=== PATIENT | male | born 1950 | race Caucasian/White ===

== ENCOUNTER → 2016-11-21 | Outpatient (CLI) | payer BC ==
[~2016-11-21] MED LIST: ACET-1138 PO; ACET-1256 PO; ALBUAER2 INH; AMLO-114 PO; ASPEC81 PO; ASPI81TA28 PO; B-CO1CAP3 PO; CARV3.122 PO; CLB/200 PO; FLUT1INH INH; LISI-789 PO; LOVAZA PO; MONT1TAB3 PO; MRPSR15 PO; ONDA8TAB6 PO; OXYSR/20 PO; RCPAV2 IV; RXC5 PO; SNK PO; TEMA15CA4 PO; UMEC1INH INH
--- NOTE | 2016-11-21 15:17 | DIAGNOSTIC IMAGING REPORT ---
ULTRASOUND VENOUS DOPPLER ULTRASOUND THE RIGHT LOWER EXTREMITY CLINICAL HISTORY: Right leg pain. Edema. COMPARISON STUDY: No previous studies for comparison. FINDINGS: Real-time and color flow Doppler imaging were performed. Flow was seen within the femoral, popliteal and calf veins with no intraluminal thrombus demonstrated. The saphenous vein is patent. There is a 4.8 x 3.6 x 2 cm complex right popliteal collection, possibly hemorrhagic given the history of recent surgery. Clinical follow-up is advocated. IMPRESSION: 1. No evidence of right lower extremity DVT 2. Complex right popliteal collection measuring 48 x 36 x 20 mm Electronically signed by: Javan Denis M.D. 11/21/2016 3:15 PM
== END | disposition home or self-care (01) ==
LOC: C.ULTRBC 14:48
PROVIDERS: ATTEND Orthopaedic Surgery
DX: M17.11 Unilateral primary osteoarthritis, right knee (principal)

== ENCOUNTER → 2017-01-22 | Outpatient (CLI) | payer BC ==
[~2017-01-22] MED LIST changes: -ACET-1256 PO; -ASPEC81 PO; -ONDA8TAB6 PO; -OXYSR/20 PO
[2017-01-22 12:59] LABS: BASO % 0.8 %; BASO ABS # 0.07 K/uL (0-0.2); COMPLETE YES; EOS % 3.6 %; HEMATOCRIT 43.9 % (42-52); LYMPH % 27.3 %; LYMPH ABS # 2.51 K/uL (1.2-3.4); MEAN CORPUSCULAR HEMOGLOBIN 29.6 pg (25-34); MEAN CORPUSCULAR HGB CONC 33.3 g/dl (32-36); MEAN PLATELET VOLUME 9.6 fL (7.4-10.4); MONO % 9.9 %; NEUT % 58.4 %; PLATELET COUNT 290 K/uL (130-400); RED BLOOD COUNT 4.93 M/uL (4.7-6.1); WHITE BLOOD COUNT 9.19 K/uL (4.8-10.8)
[2017-01-22 13:07] LABS: URINE APPEARANCE CLEAR (CLEAR); URINE BILIRUBIN NEG (NEG); URINE COLOR DK YELLOW; URINE NITRITE NEG (NEG); URINE SPECIFIC GRAVITY 1.023 (1.000-1.030); UROBILINOGEN NEG (NEG)
[2017-01-22 13:11] LABS: PROTHROMBIN TIME (PATIENT) 10.9 SECONDS (9.0-12.0)
[2017-01-22 13:20] LABS: MANUAL MICROSCOPIC REQUIRED? NO; REVIEW REQ? NO
[2017-01-22 13:36] LABS: BLOOD UREA NITROGEN 12 mg/dl (7-18); BUN/CREATININE RATIO 12.9 (10-20); CALCIUM 9.3 mg/dl (8.5-10.1); CARBON DIOXIDE 24 mmol/L (21-32); CHLORIDE 107 mmol/L (98-107); GLUCOSE 80 mg/dl (70-99); POTASSIUM 4.1 mmol/L (3.5-5.1); SODIUM 142 mmol/L (136-145)
== END | disposition home or self-care (01) ==
LOC: C.LAB 11:50
PROVIDERS: ATTEND Orthopaedic Surgery Sports Medicine
DX: Z01.812 Encounter for preprocedural laboratory examination (principal)

== ENCOUNTER → 2017-04-17 | Outpatient (CLI) | payer BC | END | disposition home or self-care (01) | LOC: C.LAB 12:34 | PROVIDERS: ATTEND Orthopaedic Surgery | DX: Z01.812 Encounter for preprocedural laboratory examination (principal) ==

== ENCOUNTER 2017-04-25 05:19 | Inpatient (IN) | payer BC ==
[2017-04-17 14:35] LABS: BASO ABS # 0.08 K/uL (0-0.2); COMPLETE YES; EOS % 5.3 %; HEMATOCRIT 40.7 % (42-52); IG% 0.1 %; LYMPH % 32.2 %; MEAN CELL VOLUME 92.1 fL (80-100); MEAN CORPUSCULAR HGB CONC 33.7 g/dl (32-36); MEAN PLATELET VOLUME 9.3 fL (7.4-10.4); MONO % 8.9 %; NEUT % 52.5 %; PLATELET COUNT 287 K/uL (130-400); RED BLOOD COUNT 4.42 M/uL (4.7-6.1); WHITE BLOOD COUNT 7.76 K/uL (4.8-10.8)
[2017-04-17 14:37] LABS: URINE APPEARANCE CLEAR (CLEAR); URINE BILIRUBIN NEG (NEG); URINE COLOR YELLOW; URINE NITRITE NEG (NEG); URINE PH 5.5 (4.5-7.5); URINE SPECIFIC GRAVITY 1.019 (1.000-1.030); UROBILINOGEN NEG (NEG); ZZUR CULT IF INDIC CLEAN CATCH NO
[2017-04-17 14:41] LABS: BLOOD UREA NITROGEN 13 mg/dl (7-18); BUN/CREATININE RATIO 15.5 (10-20); CALCIUM 8.7 mg/dl (8.5-10.1); CARBON DIOXIDE 26 mmol/L (21-32); CHLORIDE 108 mmol/L (98-107); CREATININE 0.81 mg/dl (0.60-1.40); GLUCOSE 92 mg/dl (70-99); MANUAL MICROSCOPIC REQUIRED? NO; POTASSIUM 3.9 mmol/L (3.5-5.1); REVIEW REQ? NO; SODIUM 140 mmol/L (136-145)
[2017-04-17 14:53] LABS: PARTIAL THROMBOPLASTIN RATIO 1.1; PROTHROMBIN TIME (PATIENT) 10.7 SECONDS (9.0-12.0)
--- NOTE | 2017-04-24 15:30 | HISTORY & PHYSICAL EXAMINATION ---
DATE OF ADMISSION: 04/25/2017 HISTORY OF PRESENT ILLNESS: The patient presents as a 66-year-old, 5 feet 11 inches, 265-pound white male with complaints of severe endstage DJD about his left knee. He has previously undergone right total knee arthroplasty successfully. He presents for his left total knee arthroplasty. His right total knee arthroplasty was done in October of 2016. He had an uncomplicated postoperative fashion. He has failed attempts at conservative management. He has a varus alignment to his knee with subchondral sclerosis, DJD, subluxation of femur on his tibia with bone loss in the medial tibia, subchondral sclerosis and cystic changes, severe tricompartmental degenerative joint disease with varus alignment. PAST MEDICAL HISTORY: Significant for hypertension, asthma, and chronic cough. He had a recent pneumonia as well as spinal DJD. FAMILY HISTORY: Otherwise unremarkable. SOCIAL HISTORY: The patient denies history of smoking, alcohol use or recreational drug use. PAST SURGICAL HISTORY: Significant for right total knee arthroplasty, hernia surgery, and disk surgery in neck. ALLERGIES: None. REVIEW OF SYSTEMS: Otherwise unremarkable. See history of present illness for pertinent positives. MEDICATIONS: Include tramadol as needed, ibuprofen 800 mg p.o. t.i.d. as needed, and amlodipine 1 tablet p.o. q. daily. PHYSICAL EXAMINATION: GENERAL: A very pleasant 66-year-old male with the above findings noted. HEENT: Otherwise atraumatic and normocephalic. HEART: Regular at 72 beats per minute. LUNGS: Clear. No rales, rhonchi, or wheezes noted. ABDOMEN: Soft, nontender, and nondistended. Bowel sounds are present in all 4 quadrants. RECTAL: Not performed. MUSCULOSKELETAL: Consistent with that of severe end-stage DJD with varus alignment, bone to bone changes with a medial shift to the femur on tibia of the left knee. PLAN: Left total knee arthroplasty. the patient does have a positive social history of smoking of about 1 pack per day for 45 years and a history of chronic obstructive pulmonary disease with Postoperative pain management, DVT prophylaxis and antibiotics as necessary. MTDD
[2017-04-25] VITALS (9 sets, daily range): BP systolic 121–156; BP diastolic 75–93; PULSE 66–88; TEMP 36.6–36.9; O2SAT 92–95; Ht 180.3 cm; Wt 120.4 kg
[~2017-04-25] VITALS: Ht 180.3 cm; Wt 120.4 kg
[~2017-04-25 05:19] MED LIST changes: -ACET-1138 PO; -MONT1TAB3 PO; -MRPSR15 PO; -RCPAV2 IV; -SNK PO
[2017-04-25] MEDS ORDERED: MONT1TAB3 PO (05:56)
[2017-04-25] MEDS ORDERED: CEFAZOLIN 2000 MG/60 ML D5W 60 ML IV SCH (06:00)
[2017-04-25] MEDS ORDERED: LACTATED RINGER'S 1000ML 1,000 ML IV SCH (06:00)
[2017-04-25] MEDS ORDERED: LACTATED RINGER'S 1000ML 500 ML IV ONE (06:00)
[2017-04-25] MEDS ORDERED: ROPIVACAINE 5MG/ML 30 ML 150 MG, BUPIVACAINE/EPINEPHR 0.5% MPF 30 ML, KETOROLAC TROMETH... INFIL SCH ×7 (06:00)
[2017-04-25] MEDS ORDERED: DEXAMETHASONE 4 MG TAB PO SCH (06:00)
[2017-04-25] MEDS ORDERED: LACTATED RINGER'S 1000ML IV SCH (06:00)
[2017-04-25] MEDS ORDERED: METOCLOPRAMIDE HCL 10 MG TAB PO SCH (06:00)
[2017-04-25] MEDS ORDERED: GABAPENTIN 300 MG CAP PO SCH (06:00)
[2017-04-25] MEDS ORDERED: ACETAMINOPHEN 500 MG TAB PO SCH (06:00)
[2017-04-25] MEDS ORDERED: FAMOTIDINE 20 MG TAB PO SCH (06:00)
[2017-04-25] MEDS ORDERED: CeleBREX 200 MG CAP PO SCH (06:00)
[2017-04-25] MEDS ORDERED: BUPIVACAINE 0.5 % 5 MG/1 ML PF 10ML VIAL ONE (06:19)
[2017-04-25] MEDS: TRANEXAMIC ACID INJ 1,000 MG in SODIUM CHLORIDE 0.9% 100ML 100 ML IV SCH ×2 (06:30→06:38)
[2017-04-25] MEDS ORDERED: BACITRACIN 50000 UNIT VIAL ONE (06:31)
[2017-04-25] MEDS ORDERED: POVIDONE-IODINE OP SOLN 30 ML BTL ONE (06:31)
[2017-04-25] MEDS ORDERED: ORTHO JOINT ANESTHETIC ONE (06:31)
[2017-04-25] MEDS ORDERED: MIDAZOLAM HCL 1 MG/ML 2ML VIAL ONE ×2 (06:40→07:29)
[2017-04-25] MEDS ORDERED: FENTANYL CITRATE INJ 50 MCG/1 ML 2 ML VIAL IV PRN (06:45)
[2017-04-25] MEDS ORDERED: EpHEDrine SULFATE INJ 50 MG/ML AMP IV PRN (06:45)
[2017-04-25] MEDS ORDERED: ATROPINE SULFATE 0.1 MG/ML 5ML SYR IV PRN (06:45)
[2017-04-25] MEDS ORDERED: ONDANSETRON INJ 2 MG/ML 2 ML VIAL IV PRN ×2 (06:45→08:15)
--- NOTE | 2017-04-25 06:52 | History & Physical Bridge Note ---
H&P Re-Evaluation Bridge Note: I have examined the patient, reviewed the History & Physical and in the interval since the performance of the History & Physical I have noted the following changes of clinical significance: No changes noted
[2017-04-25] MEDS ORDERED: KETAMINE HCL INJ 50 MG/ML 10 ML VIAL ONE (07:36)
[2017-04-25] MEDS ORDERED: LIDOCAINE HCL 2% 2 ML VIAL (20MG/ML) ONE (07:44)
[2017-04-25] MEDS ORDERED: PROPOFOL IV EMULSION 10 MG/ML 20 ML VIAL IV ONE (07:44)
--- NOTE | 2017-04-25 08:10 | [facility] Post Operative Brief Note ---
Immediate Operative Summary Operative Date Apr 25, 2017. Pre-Operative Diagnosis severe djd lt knee Post-Operative Diagnosis severe djd lt knee Procedure(s) Performed lt tka [facility] [place] 2 Surgeon pippa Self Pay Specialist Surgeon(s) tirso Estimated Blood Loss 5cc Findings severe djd lt knee Specimens bone and cartilage Complication(s) None Disposition Recovery Room / PACU
[2017-04-25] MEDS ORDERED: OXYCODONE HCL IR 5 MG TAB (IMMEDIATE RELEASE) PO PRN (08:15)
[2017-04-25] MEDS ORDERED: TAMSULOSIN HCL 0.4 MG CAP PO PRN (08:15)
[2017-04-25] MEDS ORDERED: DiphenhydrAMINE HCL 50 MG/ML VIAL IV PRN (08:15)
[2017-04-25] MEDS ORDERED: ZOLPIDEM TARTRATE 5 MG TAB PO PRN (08:15)
[2017-04-25] MEDS ORDERED: BISACODYL 10 MG SUPP PR PRN (08:15)
[2017-04-25] MEDS ORDERED: ALBUTEROL HFA 8 GM INHALER INH PRN (08:15)
[2017-04-25] MEDS ORDERED: MAGNESIUM HYDROXIDE SUSP 30 ML UDC PO PRN (08:15)
[2017-04-25] MEDS ORDERED: SOD PHOSPHATE/SOD BIPHOSPHATE ENEMA 132 ML BTL PR PRN (08:15)
[2017-04-25] MEDS ORDERED: METOCLOPRAMIDE HCL INJ 5 MG/ML 2 ML VIAL IV PRN (08:15)
[2017-04-25] MEDS ORDERED: ALUMINUM/MAGNESIUM/SIMETH (MAALOX MAX) 30 ML UDC PO PRN (08:15)
--- NOTE | 2017-04-25 08:50 | OPERATIVE REPORT ---
DATE OF OPERATION: 04/25/2017 PREOPERATIVE DIAGNOSIS: Severe end-stage tricompartmental degenerative joint disease, left knee. POSTOPERATIVE DIAGNOSIS: Same. PROCEDURE: Left total knee arthroplasty utilizing Mittal & Nephew nonblock Journey II total knee arthroplasty, size 8 femur, 7 tibia, 10 poly, and 35 oval patella. SURGEON: Gurjit Stearns DO SMASHER: CARMEN Cooper, who was necessary for prepping, draping, retraction, wound closure of deep fascia, subQ and skin and was necessary for the case. ESTIMATED BLOOD LOSS: 5 mL. TOURNIQUET TIME: 40 minutes. COMPLICATIONS: None. HISTORY OF PRESENT ILLNESS: The patient is a very pleasant 66-year-old white male who has failed attempts at conservative management including injections, viscosupplementation, corticosteroid injections, anti-inflammatories, relative rest, bracing, and physical therapy, who presents for total knee arthroplasty. He had undergone previous right successful total knee arthroplasty. Today, the above procedure was performed. After discussing thoroughly of risks and complications, the patient has elected to proceed forward. DESCRIPTION OF PROCEDURE: The patient was properly prepped and draped in supine position for total knee arthroplasty after identifying the appropriate surgical site. An anterior midline incision was made through the subcutaneous tissues down to the region of the extensor mechanism. A medial parapatellar incision was subsequently made. Meticulous hemostasis was obtained and performed at all times. The patella having been subluxed lateralward, medial and lateral meniscal remnants were excised. The patellar cut was then initially made and was sized to the appropriate size. After subluxing the tibia forward the appropriate meniscal fragments having been removed the distal femur was then cut first utilizing a Mittal and Nephew block. The distal femoral cuts and chamfer cuts were all made under direct visualization and the proximal tibial osteotomy cut was also made utilizing Mittal and Nephew blocks and checked with an extramedullary guide. The appropriate trial components on the femur and tibia were placed. Appropriate trial spacers were used to check flexion and extension gaps. With flexion and extension gaps being equal, the components were then subsequently after thorough irrigation and debridement lavage components were then subsequently cemented in the following order: femur, tibia and patella. Exparel was used for intraoperative anesthesia, the medial parapatellar incision was closed utilizing #1 Vicryl, subQ was closed with 2-0 Vicryl, skin was closed with skin clips. A sterile compression dressing was placed. The patient was taken to recovery room in stable condition. Due to the complex nature of the procedure, the entire surgery was performed with the operational assistance of CARMEN Cooper. The child care assistant, under direct supervision, was involved in the actual performance of all aspects of the surgical procedure including hemostasis, tissue retraction and incision, instrument management, patient positioning, and wound closure. I attest to the content of the Intraoperative Record and any orders documented therein. Any exception s are noted below.
[2017-04-25] MEDS: PANTOprazole SOD 40 MG TAB PO SCH (09:00)
[2017-04-25] MEDS: MULTIVITAMIN TAB PO SCH (09:00)
[2017-04-25] MEDS: AMLODIPINE BESYLATE 5 MG TAB PO SCH (09:00)
[2017-04-25] MEDS ORDERED: ASPIRIN 325 MG ECTAB PO SCH (09:00)
--- NOTE | 2017-04-25 09:11 | Anesthesiology Progress Note ---
Anesthesia Post Op Note Date & Time Apr 25, 2017 at 09:12 Vital Signs Pain Intensity: 0 Vital Signs Past 12 Hours Date Time Temp Pulse Resp B/P (MAP) Pulse Ox O2 Delivery O2 Flow Rate FiO2 04/25/17 09:05 64 20 100 04/25/17 09:05 66 20 04/25/17 09:02 133/82 04/25/17 09:00 61 20 04/25/17 09:00 61 20 99 04/25/17 08:57 125/75 04/25/17 08:55 61 21 100 04/25/17 08:55 61 21 04/25/17 08:54 61 18 04/25/17 08:54 61 18 100 04/25/17 08:52 124/77 04/25/17 08:49 60 22 100 04/25/17 08:49 60 22 04/25/17 08:47 117/72 04/25/17 08:45 117/66 04/25/17 08:44 36.2 63 20 117/66 100 Mask 10 04/25/17 06:05 36.7 73 16 143/83 95 Room Air Notes Mental Status: alert / awake / arousable, participated in evaluation Pt Amnestic to Procedure: Yes Nausea / Vomiting: adequately controlled Pain: adequately controlled Airway Patency, RR, SpO2: stable & adequate BP & HR: stable & adequate Hydration State: stable & adequate Neuraxial Anesthesia: was administered, sensory block is resolving Anesthetic Complications: no major complications apparent
--- NOTE | 2017-04-25 09:35 | DIAGNOSTIC IMAGING REPORT ---
LEFT KNEE 1 OR 2 VIEWS ROUTINE CLINICAL HISTORY: AP/LATERAL IN PACU LEFT KNEE COMPARISON: None. DISCUSSION: Total left knee replacement. Good contact between prosthetic and underlying bone. Surgical drains are in position. There is no evidence for soft tissue swelling. IMPRESSION: Anatomic alignment status post total left knee replacement Electronically signed by: Grzegorz Henley M.D. 04/25/2017 9:34 AM Dictated Date/Time: 04/25/2017 9:33 AM
[2017-04-25] MEDS: SODIUM CHLORIDE 0.9% 1000ML 1,000 ML IV SCH ×2 (10:59→17:59)
[2017-04-25] MEDS: FERROUS GLUCONATE 324 MG TAB PO SCH ×2 (13:28→17:59)
[2017-04-25] MEDS: TRAMADOL HCL 50 MG TAB PO PRN (14:04)
[2017-04-25] MEDS ORDERED: NURSING VERBAL MED ORDER ONE (14:15)
[2017-04-25] MEDS ORDERED: TRANEXAMIC ACID INJ 1,000 MG in SODIUM CHLORIDE 0.9% 100ML 100 ML IV SCH (14:30)
[2017-04-25] MEDS: CEFAZOLIN IV 2,000 MG in DEXTROSE 5% 50ML 50 ML IV SCH ×2 (15:46→23:16)
[2017-04-25] MEDS: OXYCODONE HCL IR 5 MG TAB (IMMEDIATE RELEASE) PO PRN ×2 (17:11→21:00)
[2017-04-25] MEDS: MoRPHine SULFATE CR 15 MG TAB (MS CONTIN) PO SCH (20:58)
[2017-04-25] MEDS: TEMAZEPAM 15 MG CAP PO SCH (20:58)
[2017-04-25] MEDS: CARVEDILOL 3.125 MG TAB PO SCH (21:00)
[2017-04-25] MEDS: ASPIRIN 81 MG ECTAB PO SCH (21:00)
[2017-04-25] MEDS: MONTELUKAST SOD 10 MG TAB PO SCH (21:01)
[2017-04-25] MEDS: SENNA 8.6 MG TAB PO SCH (21:02)
[2017-04-25] MEDS: DOCUSATE SODIUM 100 MG CAP PO SCH (21:42)
[2017-04-26] VITALS (8 sets, daily range): BP systolic 120–156; BP diastolic 69–86; PULSE 62–122; TEMP 36.5–36.9; O2SAT 94–96
[2017-04-26] MEDS: OXYCODONE HCL IR 5 MG TAB (IMMEDIATE RELEASE) PO PRN ×6 (00:54→23:55)
[2017-04-26] MEDS: SODIUM CHLORIDE 0.9% 1000ML 1,000 ML IV SCH (04:18)
[2017-04-26 06:08] LABS: HEMATOCRIT 36.7 % (42-52); MEAN CELL VOLUME 91.3 fL (80-100); MEAN CORPUSCULAR HEMOGLOBIN 30.1 pg (25-34); MEAN PLATELET VOLUME 9.2 fL (7.4-10.4); PLATELET COUNT 294 K/uL (130-400); RED BLOOD COUNT 4.02 M/uL (4.7-6.1); WHITE BLOOD COUNT 16.08 K/uL (4.8-10.8)
[2017-04-26] MEDS ORDERED: KETOROLAC TROMETHAMINE 30 MG/ML VIAL IV STA (07:20)
[2017-04-26] MEDS: MoRPHine SULFATE CR 15 MG TAB (MS CONTIN) PO SCH ×2 (07:25→21:21)
[2017-04-26] MEDS ORDERED: MoRPHine SULFATE 2 MG/ML CARP IV PRN (08:15)
[2017-04-26] MEDS ORDERED: MoRPHine SULFATE 4 MG/ML 1 ML CARP\\VIAL IV PRN (08:30)
[2017-04-26] MEDS ORDERED: MoRPHine SULFATE 10 MG/ML CARP/VIAL IV PRN (08:30)
--- NOTE | 2017-04-26 08:43 | Orthopedic Progress Note ---
Orthopedic Progress Note Date of Service Apr 26, 2017. Subjective Post OP Day: 1 Reports: feeling well Objective N/V intact, dressing C/D/I (Hemovac in place), toes mobile Date Time Temp Pulse Resp B/P (MAP) Pulse Ox O2 Delivery O2 Flow Rate FiO2 04/26/17 08:21 96 Room Air 04/26/17 07:30 36.8 122 18 120/72 (88) 96 Room Air 04/26/17 07:10 Room Air 04/26/17 04:41 36.5 72 16 142/86 (104) 94 Room Air 04/25/17 23:22 36.8 81 18 132/75 (94) 92 Room Air 04/25/17 23:21 Room Air 04/25/17 18:53 36.6 88 18 156/82 (106) 93 Room Air 04/25/17 15:49 36.7 77 18 150/82 (104) 92 Room Air 04/25/17 15:40 Room Air 04/25/17 12:27 68 16 148/93 (111) 95 2.0 04/25/17 11:29 72 18 148/83 (104) 94 Nasal Cannula 2.0 04/25/17 10:30 71 19 136/78 (97) 94 Nasal Cannula 2.0 04/25/17 10:02 73 16 127/78 (94) 92 Nasal Cannula 2.0 04/25/17 09:30 36.9 66 18 121/75 (90) 93 Nasal Cannula 2.0 04/25/17 09:30 Room Air 04/25/17 09:30 93 Nasal Cannula 2.0 04/25/17 09:23 62 22 04/25/17 09:23 61 22 94 04/25/17 09:22 132/77 04/25/17 09:18 64 20 98 04/25/17 09:18 63 20 04/25/17 09:17 63 19 04/25/17 09:17 62 19 129/81 98 04/25/17 09:13 36.5 04/25/17 09:12 64 20 133/78 98 04/25/17 09:12 65 20 04/25/17 09:11 62 21 98 04/25/17 09:11 62 21 04/25/17 09:07 118/70 04/25/17 09:06 60 14 04/25/17 09:06 61 14 100 04/25/17 09:05 64 20 100 04/25/17 09:05 66 20 04/25/17 09:02 133/82 04/25/17 09:00 61 20 04/25/17 09:00 61 20 99 04/25/17 08:57 125/75 04/25/17 08:55 61 21 100 04/25/17 08:55 61 21 04/25/17 08:54 61 18 04/25/17 08:54 61 18 100 04/25/17 08:52 124/77 04/25/17 08:49 60 22 100 04/25/17 08:49 60 22 04/25/17 08:47 117/72 04/25/17 08:45 117/66 04/25/17 08:44 36.2 63 20 117/66 100 Mask 10 Laboratory Results 24 Hours: Test 04/26/17 05:07 Hematocrit 36.7 % Hemoglobin 12.1 g/dL Assessment & Plan Assessment: 66 yo male stable POD #1 s/p left TKA Plan: 1. Med management 2. DVT prophylaxis- ASA, SCDs 3. PT/OT 4. D/C planning- home w/ HH
[2017-04-26] MEDS: DOCUSATE SODIUM 100 MG CAP PO SCH ×2 (08:46→21:21)
[2017-04-26] MEDS: ASPIRIN 81 MG ECTAB PO SCH ×2 (08:47→21:23)
[2017-04-26] MEDS: CARVEDILOL 3.125 MG TAB PO SCH ×2 (08:47→21:23)
[2017-04-26] MEDS: PANTOprazole SOD 40 MG TAB PO SCH (08:47)
[2017-04-26] MEDS: LISINOPRIL 2.5 MG TAB PO SCH (08:47)
[2017-04-26] MEDS: MULTIVITAMIN TAB PO SCH (08:47)
[2017-04-26] MEDS: FERROUS GLUCONATE 324 MG TAB PO SCH ×3 (08:48→17:30)
[2017-04-26] MEDS: AMLODIPINE BESYLATE 5 MG TAB PO SCH (08:48)
--- NOTE | 2017-04-26 10:33 | Anesthesiology Progress Note ---
Anesthesia Post Op Note Date & Time Apr 26, 2017 at 10:34 Vital Signs Pain Intensity: 8.0 Vital Signs Past 12 Hours Date Time Temp Pulse Resp B/P (MAP) Pulse Ox O2 Delivery O2 Flow Rate FiO2 04/26/17 09:07 74 130/78 (95) 04/26/17 08:21 96 Room Air 04/26/17 07:30 36.8 122 18 120/72 (88) 96 Room Air 04/26/17 07:10 Room Air 04/26/17 04:41 36.5 72 16 142/86 (104) 94 Room Air 04/25/17 23:22 36.8 81 18 132/75 (94) 92 Room Air 04/25/17 23:21 Room Air Notes Mental Status: alert / awake / arousable, participated in evaluation Pt Amnestic to Procedure: Yes Nausea / Vomiting: adequately controlled Pain: adequately controlled Airway Patency, RR, SpO2: stable & adequate BP & HR: stable & adequate Hydration State: stable & adequate Neuraxial Anesthesia: was administered, sensory block resolved Anesthetic Complications: no major complications apparent
[2017-04-26] MEDS: TRAMADOL HCL 50 MG TAB PO PRN (11:55)
[2017-04-26] MEDS ORDERED: NURSING VERBAL MED ORDER ONE (14:30)
--- NOTE | 2017-04-26 17:13 | Discharge Instructions ---
Discharge Instructions Date of Service Apr 26, 2017. Admission Reason for Admission: Unilateral Primary Osteoarthritis, Left Knee Discharge Discharge Diagnosis / Problem: Left Knee Djd Discharge Goals Goal(s): Decrease discomfort, Improve function Activity Recommendations Activity Limitations: per Instructions/Follow-up section Weightbearing Status: Left weightbearing (as tolerated) . Instructions / Follow-Up Instructions / Follow-Up ACTIVITY RECOMMENDATIONS: SELF CARE INSTRUCTIONS AFTER TOTAL KNEE REPLACEMENT A. You may need to continue a physical therapy program after discharge from the hospital. There are several options available to you. Your doctor will assist you in selecting the best one for you. 1. An out-patient facility 2 to 3 times a week for therapy or home therapy. 2. Continue working on all exercises taught to you in the hospital. Your goals should be to increase bending of your knee to 90 degrees and beyond and to fully straighten your knee. B. You may progress at your own pace from walking with a walker or crutches to a cane; then to no assistive devices. C. Make walking a part of your daily routine. Be up as much as comfortable with rest periods throughout the day. Rest with leg elevation is very important. Use the ice wrap frequently for the first 3-4 weeks. D. There are no restrictions on activities. You may ride in a car, shop, participate in drill hand and all social activities. E. Wear the long elastic stockings (MANNY hose) 20 hours a day for 2 weeks after surgery. They can be removed several times a day for laundering and for a bath. F. You may shower, no tub baths until cleared by your doctor. SPECIAL CARE INSTRUCTIONS: VERY IMPORTANT TO READ AND REVIEW A. There are a few signs you need to watch for after you are home. Call [facility] if you notice any of the followin. Increased severe knee pain. Some pain is expected especially when you exercise. 2. Increased swelling in your leg or knee; pain or swelling of the calf muscle in either lower leg. 3. Any fluid drainage from the incision. 4. Shortness of breath or chest pain. B. Please call [facility] at if you have any concerns or questions about your operation or recovery. The doctor or his nurse will return your call promptly. C. You must take antibiotics before dental work, bladder, bowel or other surgery. Your doctor will provide you with a permanent care to carry describing this precaution. IMPORTANT: * REMEMBER TO TAKE ASPIRIN, 81 MG, TWICE DAILY FOR 4 WEEKS UNLESS OTHERWISE DIRECTED. THIS IS YOUR BLOOD THINNER. * HIGH RISK PATIENTS MAY BE PRESCRIBED A STRONGER BLOOD THINNER. THIS WILL BE PROVIDED AT DISCHARGE. * CALL IF INCREASED PAIN, REDNESS, DRAINAGE OR FEVER GREATER THAT 101. * WEAR MANNY HOSE 20 HOURS PER DAY FOR 2 WEEKS. * Silverlon- This is a large adhesive bandage that contains silver ions. This helps your incision heal by fighting off bacteria and protecting it from the outside environment. You are permitted to shower with this dressing. This will remain on your incision for 7 days and then should be removed. Some visible blood or drainage through the dressing window is normal. If there is significant drainage or leaking noted before the 7 days notify your doctor's office immediately. Once removed, keep incision clean and dry. If there is any drainage or redness noted, please call your surgeon. . FOLLOW UP VISIT: If appointment is not already scheduled: Please call [facility] to make a follow-up appointment for 2 weeks after your surgery at . Current Hospital Diet Patient's current hospital diet: Regular Diet Discharge Diet Recommended Diet: Regular Diet Procedures Procedures Performed: Left Total knee Arthroplasy [facility] 2 Pending Studies Studies pending at discharge: no Medical Emergencies . Who to Call and When: Medical Emergencies: If at any time you feel your situation is an emergency, please call 911 immediately. . Non-Emergent Contact Non-Emergency issues call your: Surgeon Call Non-Emergent contact if: temperature is above 101.5, your pain is not controlled, your pain is worsening, wound has increased drainage, wound has increased redness . "Provider Documentation" section prepared by Samy Diaz. . VTE Core Measure Inpt VTE Proph given/why not?: Other Anticoagulation, T.E.Bebe Brown, SCD's [place] Drug Monitoring Program Search Results: patient reviewed within database, no issues identified
[2017-04-26] MEDS ORDERED: KETOROLAC TROMETHAMINE 30 MG/ML VIAL IV. ONE (18:00)
[2017-04-26] MEDS: TEMAZEPAM 15 MG CAP PO SCH (21:20)
[2017-04-26] MEDS: SENNA 8.6 MG TAB PO SCH (21:22)
[2017-04-26] MEDS: MONTELUKAST SOD 10 MG TAB PO SCH (21:22)
[2017-04-27] MEDS: OXYCODONE HCL IR 5 MG TAB (IMMEDIATE RELEASE) PO PRN ×2 (04:39→09:36)
[2017-04-27] MEDS: TRAMADOL HCL 50 MG TAB PO PRN ×2 (05:15→12:12)
[2017-04-27 06:03] VITALS: BP 121/71; PULSE 75; TEMP 37.3; O2SAT 91
[2017-04-27] MEDS: MoRPHine SULFATE CR 15 MG TAB (MS CONTIN) PO SCH (07:04)
[2017-04-27] MEDS: AMLODIPINE BESYLATE 5 MG TAB PO SCH (07:05)
[2017-04-27] MEDS: ASPIRIN 81 MG ECTAB PO SCH (07:05)
[2017-04-27] MEDS: PANTOprazole SOD 40 MG TAB PO SCH (07:05)
[2017-04-27] MEDS: DOCUSATE SODIUM 100 MG CAP PO SCH (07:05)
[2017-04-27] MEDS: FERROUS GLUCONATE 324 MG TAB PO SCH ×2 (07:05→12:12)
[2017-04-27] MEDS: CARVEDILOL 3.125 MG TAB PO SCH (07:06)
[2017-04-27] MEDS: LISINOPRIL 2.5 MG TAB PO SCH (07:06)
[2017-04-27] MEDS: MULTIVITAMIN TAB PO SCH (07:06)
[2017-04-27 08:52] VITALS: BP 114/73; PULSE 70; O2SAT 95
--- NOTE | 2017-04-27 12:44 | Orthopedic Progress Note ---
Orthopedic Progress Note Date of Service Apr 27, 2017. Subjective Post OP Day: 2 Reports: feeling well, Denies: complaints, chest pain, SOB, nausea / vomiting, light headedness, calf pain Additional Notes: Patient states the knee is doing ok but can be painful at times. He would like to leave today if possible. Objective calves soft nontender, N/V intact, capillary refill less than 2 sec., dressing C /D/I, A&O x3, toes mobile Date Time Temp Pulse Resp B/P (MAP) Pulse Ox O2 Delivery O2 Flow Rate FiO2 04/27/17 07:14 Room Air 04/27/17 06:03 37.3 75 18 121/71 (88) 91 Room Air 04/26/17 23:59 Room Air 04/26/17 23:43 36.9 72 18 130/69 (89) 95 Room Air 04/26/17 21:17 72 134/77 (96) 04/26/17 19:50 Room Air 04/26/17 17:35 Room Air 04/26/17 15:36 36.6 62 20 156/72 (100) 96 Room Air Assessment & Plan Assessment: 66 yo male stable POD #2 s/p left TKA Plan: 1. Med management 2. DVT prophylaxis- ASA, SCDs 3. PT/OT 4. D/C planning- home w/ HH Inhouse Planning Pain Management: Ultram, Morphine, Oxy IR Discharge Planning Discharge Planning: home with home health DVT Prophylaxis: ASA
[2017-04-27] MEDS ORDERED: ASPI81TA28 PO (13:42)
[2017-04-27] MEDS ORDERED: MRPSR15 PO (13:42)
[2017-04-27] MEDS ORDERED: SNK PO (13:42)
[2017-04-27] MEDS ORDERED: ACET-1138 PO (13:42)
[2017-04-27] MEDS ORDERED: RXC5 PO (13:42)
[2017-04-27] MEDS ORDERED: CLB/200 PO (14:07)
[2017-04-27 14:24] VITALS: BP 114/73; PULSE 70; TEMP 37.3; O2SAT 95
--- NOTE | 2017-04-30 16:57 | DISCHARGE SUMMARY ---
DISCHARGE DIAGNOSIS: Degenerative joint disease, left knee. SECONDARY DIAGNOSES: Hypertension, asthma, chronic cough, pneumonia in the past, degenerative joint disease of the spine. CONSULTS: None. COMPLICATIONS: None. PROCEDURES: Left total knee arthroplasty performed by Dr. Stearns on 04/25/2017. BRIEF HISTORY OF PRESENT ILLNESS: As dictated in the history and physical. HOSPITAL SUMMARY: The patient was admitted on the above-noted date and had the above-noted surgery performed which he tolerated well. On the first postoperative day, he was feeling well and had no complaints. Neurovascularly was intact. Dressings were clean, dry and intact. Toes were mobile. Vital signs were stable. The patient was afebrile and hemoglobin was 12.1 and he was started on physical therapy protocol and continued on DVT prophylaxis and pain management. By his second postoperative day, he was feeling well and stated that his knee was doing okay, but painful off and on. He was hoping to go home that day. Calves were soft, nontender, neurovascularly intact. Dressings were clean, dry and intact. Toes were mobile. Vital signs were stable. He was afebrile. He was progressing with his physical therapy and it was felt he could be discharged to home with home health services on 04/27/2017. For further review, please see chart. LABORATORY AND X-RAY DATA: As per chart. DISCHARGE INSTRUCTIONS: The patient was discharged to home in satisfactory condition on 04/27/2017. DIET: Regular. ACTIVITY: Follow TK instruction sheets and special care instructions as noted. Follow up with Dr. Stearns in 2 weeks. The patient to call for appointment if one has not been made for you. DISCHARGE MEDICATIONS: New prescriptions; acetaminophen 1000 mg p.o. q. 8 hours for 30 days, MS Contin 15 mg p.o. q. 12 hours, senna 17.2 mg at bedtime, oxycodone 5-10 mg p.o. q. 4 hours p.r.n., aspirin 81 mg p.o. b.i.d. for 30 days. After 30 days, resume once daily dosing and resume home meds as listed in discharge instructions.
== END 2017-04-27 14:38 | DRG 470 ==
LOC: C.ACU 05:19 → C.3E 06:30 → ENRESERV 08:52
PROVIDERS: ADMIT Orthopaedic Surgery; ATTEND Orthopaedic Surgery
PROC: 0SRD0J9 Replacement of Left Knee Joint with Synthetic Substitute, Cemented, Open Approach (ICD-10-PCS; principal; 2017-04-25 07:00)
DX: M17.12 Unilateral primary osteoarthritis, left knee (principal); I10 Essential (primary) hypertension; J44.9 Chronic obstructive pulmonary disease, unspecified; M54.2 Cervicalgia; E66.9 Obesity, unspecified; F17.210 Nicotine dependence, cigarettes, uncomplicated; M47.9 Spondylosis, unspecified; R05 Cough; I65.29 Occlusion and stenosis of unspecified carotid artery; I35.0 Nonrheumatic aortic (valve) stenosis; Z96.651 Presence of right artificial knee joint; Z68.37 Body mass index [BMI] 37.0-37.9, adult; Z79.891 Long term (current) use of opiate analgesic; Z79.899 Other long term (current) drug therapy; Z79.1 Long term (current) use of non-steroidal anti-inflammatories (NSAID)

== ENCOUNTER 2017-06-04 12:49 | Inpatient (IN) | payer BC ==
[~2017-06-04] VITALS: Ht 177.8 cm; Wt 120.5 kg
[~2017-06-04 12:49] MED LIST changes: +ACET-1138 PO; +MONT1TAB3 PO; +MRPSR15 PO; +SNK PO
[2017-06-04 15:25] VITALS: BP 113/70; PULSE 73; TEMP 36.7; O2SAT 96
--- NOTE | 2017-06-04 17:20 | Anesthesiology Progress Note ---
Anesthesia Progress Note Date of Service Jun 04, 2017. Progress Notes The patient is a 66 y/o male scheduled for a L knee polyexchange tomorrow. He had a L TKA on 04/25/17 with no anesthesia problems. PMH includes COPD, longtime smoker, nonobstructive CAD, mild , R BBB, mild carotid artery stenosis, cervicalgia, BPH, and psoriasis. Prior EKG shows sinus rhythm, 1st degree AV block, and R BBB. His echo shows EF 60% with mild . Prior CXR shows ACDF and mild lung hyperexpansion. Prior labs were significant for WBC of 16 on . On exam the patient has a mustache. He is a MP 2 airway with good TMD. Teeth are intact. Lungs had some coarse breath sounds and patient has a nonproductive "smoker's" cough. Heart was RRR. The patient is an ASA 3. He was consented to spinal and general anesthesia as well as an adductor canal block. Anesthetic choice to be made on day of surgery. The patient was consented to remain NPO after midnight except for sips of water with pills.
[2017-06-04 17:39] VITALS: Ht 177.8 cm; Wt 120.5 kg
[2017-06-04] MEDS: OXYCODONE HCL IR 5 MG TAB (IMMEDIATE RELEASE) PO PRN ×2 (18:02→22:21)
[2017-06-04 18:30] LABS: MEAN CELL VOLUME 90.4 fL (80-100); MEAN CORPUSCULAR HEMOGLOBIN 28.5 pg (25-34); MEAN CORPUSCULAR HGB CONC 31.5 g/dl (32-36); MEAN PLATELET VOLUME 8.7 fL (7.4-10.4); PLATELET COUNT 354 K/uL (130-400); RED BLOOD COUNT 3.76 M/uL (4.7-6.1); WHITE BLOOD COUNT 9.48 K/uL (4.8-10.8)
[2017-06-04 22:50] VITALS: BP 133/82; PULSE 72; TEMP 37; O2SAT 97
[2017-06-05] VITALS (7 sets, daily range): BP systolic 117–137; BP diastolic 69–81; PULSE 64–89; TEMP 36.8–37.1; O2SAT 94–98
[2017-06-05] MEDS: OXYCODONE HCL IR 5 MG TAB (IMMEDIATE RELEASE) PO PRN ×3 (02:44→23:53)
[2017-06-05] MEDS: MoRPHine SULFATE 2 MG/ML CARP IV PRN ×3 (02:48→10:45)
[2017-06-05] MEDS ORDERED: VANCOMYCIN INJ 1,800 MG in SODIUM CHLORIDE 0.9% 500ML 500 ML IV SCH (06:00)
[2017-06-05] MEDS ORDERED: METOCLOPRAMIDE HCL 10 MG TAB PO SCH (06:00)
[2017-06-05] MEDS ORDERED: LACTATED RINGER'S 1000ML IV SCH (06:00)
[2017-06-05] MEDS ORDERED: ACETAMINOPHEN 500 MG TAB PO SCH (06:00)
[2017-06-05] MEDS ORDERED: CeleBREX 200 MG CAP PO SCH (06:00)
[2017-06-05] MEDS ORDERED: DEXAMETHASONE 4 MG TAB PO SCH (06:00)
[2017-06-05] MEDS ORDERED: GABAPENTIN 300 MG CAP PO SCH (06:00)
[2017-06-05] MEDS ORDERED: FAMOTIDINE 20 MG TAB PO SCH (06:00)
[2017-06-05] MEDS ORDERED: ROPIVACAINE 5MG/ML 30 ML 150 MG, BUPIVACAINE/EPINEPHR 0.5% MPF 30 ML, KETOROLAC TROMETH... INFIL SCH ×7 (06:00)
--- NOTE | 2017-06-05 06:57 | History and Physical ---
History & Physical Date Jun 05, 2017. Chief Complaint Patient presents a 66-year-old white male 5 foot 11 Kate 5 pounds status post Re: Arthroplasty April left total knee arthroplasty from 04/25/2017 and Duramorph well with no complaints until leapfrogging may develop drainage of the anterior wound had a pinpoint area approximately 2 mm he relates started draining serosanguineous fluid he went on antibiotics without speaking with the office for which he had penicillin amoxicillin millimeter. We can appointment scheduled Sunday presents with this new onset problem at that time with evaluation on Sunday he had copious drains are serosanguineous fluid appears Allbee from the prepatellar area fact it's been open and draining through the weekend concern was for obvious deep infection this reason patient was admitted to the hospital placed on intravenous antibiotics labs were taken and patient was scheduled for I&D today for possible poly-change pending findings at time of surgery. This is for hypertension asthma chronic cough or recent pneumonia as well as spinal degenerative joint to the spinal degenerative disc disease History of Present Illness The patient is a 66 year old male with complaints of complaints of Centrix restrains beginning on Sunday night as noted above Past Medical/Surgical History Medical Problems: (1) Left knee DJD (2) Right knee DJD Additional History Hepatic Disease: No Endocrine Disorder: No Kidney Disease: No Hypertension: Yes Heart Disease: No Bleeding Tendencies: No Infectious Diseases: No Allergies Coded Allergies: Hydromorphone (Verified Adverse Reaction, Mild, IRRITABLE AND AGITATED, 04/25/17) Fentanyl (Verified Adverse Reaction, Unknown, agitation and irritation , ) Hydrocodone (Verified Adverse Reaction, Unknown, irritation and agitation , 04/25/17) Home Medications Scheduled Acetaminophen (Tylenol Extra Strength), 2 TABS PO Q8H Albuterol (Ventolin), 2 PUFFS INH UD Amlodipine (Norvasc), 10 MG PO QAM Aspirin (Aspirin Ec), 81 MG PO BID B-Complex Vitamins (B Complex), 4 TAB PO BID Carvedilol (Coreg), 3.125 MG PO BID Celecoxib (CeleBREX), 200 MG PO BID Fluticasone Furoate-Vilanterol (Breo Ellipta), 1 PUFF INH QAM Lisinopril (Zestril), 2.5 MG PO QAM Montelukast Sodium (Singulair), 1 TAB PO DAILY Morphine Sulfate (Morphine Sulfate ER), 15 MG PO Q12H Senna (Senna Lax), 17.2 MG PO HS Temazepam (Restoril), 15 MG PO HS Umeclidinium [place] (Incruse Ellipta), 1 PUFF INH QAM [Lovaza], 1 TAB PO TID Scheduled PRN Oxycodone HCl (Oxycodone HCl), 5-10 MG PO Q4H PRN for Pain Physical Examination Extremities: + pertinent finding (drainage serosanguineous from left anterior knee wound pinpointed drain site) Diagnosis Draining left knee wound with serosanguineous drainage status post total knee arthroplasty 04/25/2017 Plan of Treatment I&D possible poly-change pending findings at time of surgery surgery.
[2017-06-05] MEDS ORDERED: BUPIVACAINE 0.5 % 5 MG/1 ML PF 10ML VIAL ONE (07:19)
[2017-06-05] MEDS ORDERED: BUPIVACAINE 0.25% 30 ML VIAL ONE (07:19)
[2017-06-05] MEDS ORDERED: NURSING VERBAL MED ORDER ONE (07:45)
--- NOTE | 2017-06-05 07:47 | History and Physical ---
History & Physical Date & Time of Service: Jun 05, 2017 at 07:20 Chief Complaint: Infected Left Total Knee Primary Care Physician: Mariam Klein D.O. History of Present Illness Source: patient Patient is a 66-year-old white male known to our practice who is status post left total knee arthroplasty in April of this year. Patient was doing well with his physical therapy and was fairly independent. He states that just before this previous weekend he noticed a red pinpoint area on his knee incision. It began draining slightly some serous drainage and he decided to start taking antibiotics that he had at home. He states that he had taken amoxicillin as well as penicillin tablets over the weekend and then came in to see Dr. Stearns yesterday for his regular appointment. He denies fevers chills, nausea and vomiting. After coming in to see Dr. Stearns, Dr. Stearns had apparently expressed approximately a half a cup to a cup full of yellow serous drainage from the prepatellar area. He had some mild to moderate erythema around the incision and the patient states that he was having increased difficulty with ambulation. It was felt that he would need admitted for irrigation debridement and IV antibiotics and the patient was then admitted by Dr. Stearns for further care. Past Medical/Surgical History Htn, Hypercholesterolemia, COPD, Obesity Left TKA 05/05 Right TKA 2015 Hernioraphy 2010 Cervical Spine Surgery 2008 Family History Hypertension Social History Smoking Status: Current Every Day Smoker Alcohol Use: occasionally Drug Use: none Marital Status: Occupational Status: disabled Allergies Coded Allergies: Hydromorphone (Verified Adverse Reaction, Mild, IRRITABLE AND AGITATED, 04/25/17) Fentanyl (Verified Adverse Reaction, Unknown, agitation and irritation , ) Hydrocodone (Verified Adverse Reaction, Unknown, irritation and agitation , 04/25/17) Home Medications Scheduled Acetaminophen (Tylenol Extra Strength), 2 TABS PO Q8H Albuterol (Ventolin), 2 PUFFS INH UD Amlodipine (Norvasc), 10 MG PO QAM Aspirin (Aspirin Ec), 81 MG PO BID B-Complex Vitamins (B Complex), 4 TAB PO BID Carvedilol (Coreg), 3.125 MG PO BID Celecoxib (CeleBREX), 200 MG PO BID Fluticasone Furoate-Vilanterol (Breo Ellipta), 1 PUFF INH QAM Lisinopril (Zestril), 2.5 MG PO QAM Montelukast Sodium (Singulair), 1 TAB PO DAILY Morphine Sulfate (Morphine Sulfate ER), 15 MG PO Q12H Senna (Senna Lax), 17.2 MG PO HS Temazepam (Restoril), 15 MG PO HS Umeclidinium [place] (Incruse Ellipta), 1 PUFF INH QAM [Lovaza], 1 TAB PO TID Scheduled PRN Oxycodone HCl (Oxycodone HCl), 5-10 MG PO Q4H PRN for Pain Review of Systems Patient denies any recent fevers chills or night sweats, unexplained weight loss , weight gain. He only states that he's been having increased pain in the left knee with ambulation. He denies chest pain, chest pressure, or heart beat. He denies shortness of breath at rest, and denies any new onset of shortness of breath on exertion. No increased cough or sputum production. Denies abdominal pain, nausea or vomiting, melena, hematemesis, hematochezia. Denies any recent hematuria, pyuria, dysuria. Denies burning on urination. No unusual lightheadedness, dizzy spells, vertigo. No changes in vision. Physical Exam Vital Signs Date Time Temp Pulse Resp B/P (MAP) Pulse Ox O2 Delivery O2 Flow Rate FiO2 06/05/17 01:27 Room Air 06/04/17 22:50 37.0 72 18 133/82 (99) 97 Room Air 06/04/17 20:35 Room Air 06/04/17 17:39 Room Air 06/04/17 15:25 36.7 73 18 113/70 (84) 96 Room Air General Appearance: WD/WN, no apparent distress Head: normocephalic, atraumatic Eyes: normal inspection, PERRL, sclerae normal ENT: normal ENT inspection Neck: supple Respiratory/Chest: lungs clear Cardiovascular: regular rate, rhythm Abdomen/GI: normal bowel sounds, non tender, soft Back: normal inspection Extremities/Musculoskelatal: + pertinent finding (left knee incision with mild erythema. Small open area over the mid incision area with clear to yellowish serous drainage. Able to go through gentle range of motion with mild to moderate discomfort. Increased pain with ambulation and left knee per patient. No obvious striations going down or up the extremity. Left hip and left ankle and foot range of motion within normal limits. Right lower extremity within normal limits with active and passive range of motion. Bilateral upper extremities within normal limits. Pulses equal bilaterally of the upper and lower extremities.) Neurologic/Psych: no motor/sensory deficits, oriented x 3 Skin: warm/dry Lymphatic: no adenopathy Diagnostics Laboratory Results Results Past 24 Hours Test 06/04/17 16:20 06/04/17 18:12 06/04/17 18:13 Range/Units C-Reactive Protein 13.90 0-0.29 mg/dl White Blood Count 9.48 4.8-10.8 K/uL Red Blood Count 3.76 4.7-6.1 M/uL Hemoglobin 10.7 14.0-18.0 g/dL Hematocrit 34.0 42-52 % Mean Corpuscular Volume 90.4 80-100 fL Mean Corpuscular Hemoglobin 28.5 25-34 pg Mean Corpuscular Hemoglobin Concent 31.5 32-36 g/dl RDW Standard Deviation 45.2 36.4-46.3 fL RDW Coefficient of Variation 13.6 11.5-14.5 % Platelet Count 354 130-400 K/uL Mean Platelet Volume 8.7 7.4-10.4 fL Erythrocyte Sedimentation Rate 38 0-14 mm/hr Impression Assessment and Plan Infection Left Knee s/p L TKA Plan will be to keep the patient nothing by mouth today, and for him to the operating room suite where an irrigation and debridement will be performed. Patient may need to undergo polyethylene bearing change depending on how deep the infection is. Infectious disease consult has been placed. As noted, patient was already taking antibiotics on his own over the weekend. He was then started on Ancef upon his arrival to the hospital. Further antibiotic choices will be pending OR culture results. Advanced Directives Existing Living Will: Yes Existing Power of Nursery Laborer: Yes VTE Prophylaxis VTE Risk Assessment Done? Y/N: Yes Risk Level: Moderate
--- NOTE | 2017-06-05 09:53 | Medical Consult ---
Consultation Date of Consultation: Jun 05, 2017. Attending Physician: Gurjit Stearns D.O. History of Present Illness pt admitted from home after incision left knee opened spontaneously at home over weekend. Had tkr done on 04/25, doing well post op then over weekend had increased swelling pain and weeping from incision. took leftover amox and pcn at home. saw ortho yesterday if office and significant purulent fluid was expressed, he does not know if culture was obtained. He was admitted to hospital and placed on IV vanco, for OR. No cultures to review. Tolerating abx. Denies f/c at home, afebrile since admission. wbc nml but esr elevated at 38 and crp elevated at 13. C/o pain in knee. was unable to ambulate over weekend but states was able to bear weight yesterday after fluid expressed. No abd pain , no n/v/d. no cp, cough, sob. Denies trauma to knee. All remaining ros reviewed and are negative. Family History Hypertension Social History Smoking Status: Current Every Day Smoker Alcohol Use: occasionally Drug Use: none Marital Status: Housing Status: lives alone Occupation Status: disabled Allergies Coded Allergies: Hydromorphone (Verified Adverse Reaction, Mild, IRRITABLE AND AGITATED, 04/25/17) Fentanyl (Verified Adverse Reaction, Unknown, agitation and irritation , ) Hydrocodone (Verified Adverse Reaction, Unknown, irritation and agitation , 04/25/17) Current Inpatient Medications Current Inpatient Medications Medications (Trade) Dose Ordered Sig/Francia Route Start Time Stop Time Status Last Admin Dose Admin Oxycodone HCl (Roxicodone Immediate Rel Tab) @ Q4HWA PRN PO 06/04/17 17:15 06/18/17 17:14 06/04/17 22:21 10 MG Morphine Sulfate (MoRPHine SULFATE INJ) 2 mg Q4HWA PRN IV 06/04/17 17:15 06/18/17 17:14 06/05/17 06:42 2 MG Lactated Ringer's 1,000 ml @ 60 mls/hr [id number] IV 06/05/17 06:00 06/05/17 22:39 06/05/17 06:08 60 MLS/HR Acetaminophen (Tylenol Tab) 1,000 mg PREOP PO 06/05/17 06:00 06/05/17 18:00 Celecoxib (CeleBREX CAP) 200 mg PREOP PO 06/05/17 06:00 06/05/17 18:00 Dexamethasone (Decadron Tab) 8 mg PREOP PO 06/05/17 06:00 06/05/17 18:00 Famotidine (Pepcid Tab) 20 mg PREOP PO 06/05/17 06:00 06/05/17 18:00 Gabapentin (Neurontin Cap) 600 mg PREOP PO 06/05/17 06:00 06/05/17 18:00 Metoclopramide HCl (Reglan Tab) 10 mg PREOP PO 06/05/17 06:00 06/05/17 18:00 Vancomycin HCl 1800 mg/Sodium Chloride 536 ml @ 200 mls/hr TODAY@0600 IV 06/05/17 06:00 06/05/17 18:00 Physical Exam Date Time Temp Pulse Resp B/P (MAP) Pulse Ox O2 Delivery O2 Flow Rate FiO2 06/05/17 08:09 94 Room Air 06/05/17 08:04 Room Air 06/05/17 07:38 37.1 65 17 121/74 (90) 94 Room Air 06/05/17 01:27 Room Air 06/04/17 22:50 37.0 72 18 133/82 (99) 97 Room Air 06/04/17 20:35 Room Air 06/04/17 17:39 Room Air 06/04/17 15:25 36.7 73 18 113/70 (84) 96 Room Air General Appearance: WD/WN, no apparent distress Head: normocephalic, atraumatic Eyes: normal inspection, EOMI Neck: supple Respiratory/Chest: lungs clear Cardiovascular: regular rate, rhythm, no edema, no murmur Abdomen/GI: non tender, soft Extremities/Musculoskelatal: no calf tenderness, no pedal edema, + pertinent finding (left knee with min erythema surrounding incision, warm and tender to palpation, incision open, no bleeding, unable to express drainage but dressing saturated) Neurologic/Psych: alert, oriented x 3 Skin: normal color, no rash Laboratory Results Last 24 Hours Test 06/04/17 16:20 06/04/17 18:12 06/04/17 18:13 C-Reactive Protein 13.90 mg/dl White Blood Count 9.48 K/uL Red Blood Count 3.76 M/uL Hemoglobin 10.7 g/dL Hematocrit 34.0 % Mean Corpuscular Volume 90.4 fL Mean Corpuscular Hemoglobin 28.5 pg Mean Corpuscular Hemoglobin Concent 31.5 g/dl RDW Standard Deviation 45.2 fL RDW Coefficient of Variation 13.6 % Platelet Count 354 K/uL Mean Platelet Volume 8.7 fL Erythrocyte Sedimentation Rate 38 mm/hr Assessment & Plan (1) Infection of prosthesis Assessment & Plan: continue emperic abx, will add gnr coverage. check blood cultures and routine labs. Please send OR cultures. will follow, suspect will need prolonged course of IV abx, additional recs based on culture data. Will follow, thank you
[2017-06-05] MEDS ORDERED: PIPERACILL/TAZOBAC CONSULT ACTIVE PRN (10:00)
[2017-06-05] MEDS ORDERED: PIPERACILL/TAZOBAC IV 4.5 GM in DEXTROSE 5% 100ML IV ONE (10:30)
[2017-06-05 11:52] LABS: ALT/SGPT 19 U/L (12-78); BLOOD UREA NITROGEN 9 mg/dl (7-18); BUN/CREATININE RATIO 14.1 (10-20); CALCIUM 9.1 mg/dl (8.5-10.1); CARBON DIOXIDE 26 mmol/L (21-32); CHLORIDE 107 mmol/L (98-107); CREATININE 0.66 mg/dl (0.60-1.40); GLUCOSE 105 mg/dl (70-99); POTASSIUM 3.9 mmol/L (3.5-5.1); SODIUM 140 mmol/L (136-145)
[2017-06-05 11:55] LABS: ALB/GLOB RATIO 0.8 (0.9-2); ALKALINE PHOSPHATASE 74 U/L (45-117); AST/SGOT 10 U/L (15-37)
[2017-06-05] MEDS ORDERED: PIPERACILL/TAZOBAC IV 3.375 GM in DEXTROSE 5% 100ML 100 ML IV SCH (12:00)
[2017-06-05] MEDS ORDERED: BACITRACIN 50000 UNIT VIAL ONE (12:11)
[2017-06-05] MEDS ORDERED: PROPOFOL IV EMULSION 10 MG/ML 20 ML VIAL IV ONE (12:23)
[2017-06-05] MEDS ORDERED: LIDOCAINE HCL 2% 2 ML VIAL (20MG/ML) ONE ×2 (12:23→13:24)
[2017-06-05] MEDS ORDERED: MIDAZOLAM HCL 1 MG/ML 2ML VIAL ONE (12:23)
[2017-06-05] MEDS ORDERED: FENTANYL CITRATE INJ 50 MCG/1 ML 2 ML VIAL ONE (12:23)
[2017-06-05] MEDS ORDERED: POVIDONE-IODINE OP SOLN 30 ML BTL ONE (12:38)
[2017-06-05] MEDS ORDERED: ONDANSETRON INJ 2 MG/ML 2 ML VIAL IV PRN ×2 (13:00→14:30)
[2017-06-05] MEDS ORDERED: MoRPHine SULFATE 10 MG/ML CARP/VIAL IV PRN (13:00)
[2017-06-05] MEDS ORDERED: KETOROLAC TROMETHAMINE 30 MG/ML VIAL IV. PRN (13:00)
[2017-06-05] MEDS ORDERED: PHENYLEPHRINE 100MCG/ML 5ML SYR IV PRN (13:00)
[2017-06-05] MEDS ORDERED: ATROPINE SULFATE 0.1 MG/ML 5ML SYR IV PRN (13:00)
[2017-06-05] MEDS ORDERED: EpHEDrine SULFATE INJ 50 MG/ML AMP IV PRN (13:00)
--- NOTE | 2017-06-05 13:53 | [facility] Operative Report ---
Operative Report Operative Date Jun 05, 2017. Pre-Operative Diagnosis Wound drainage left knee Left Knee Status Post Left Total Knee Arthroplasty Post-Operative Diagnosis Wound drainage left knee Left Knee Status Post Left Total Knee Arthroplasty Procedure(s) Performed Left Knee Incision and Drainage, Poly Exchange Mittal & Nephmarly Surgeon Dr. Stearns Farm Management Adviser Surgeon(s) Samy Diaz PA-C Estimated Blood Loss 5ML Findings the pinpoint drainage with serous fluid from his knee starting on Sunday evening began antibiotics also with amoxicillin and penicillin presented to the office pinpoint drainage of serosanguineous fluid from his knee with no history of trauma or fall patient was admitted to the hospital for intravenous antibiotics I&D possible poly-change time of surgery the above findings were noted patient had a 4 cm dehiscence of his deep VMO repair at the insertion of his quad tendon communication with the pinpoint drainage to the deep portion of the wound poly-exchange was irrigated Cecelia lavage versa jet was used Specimens Mircobiology #1- Left Knee Synovial Fluid; gram stain, routine culture and sensitivity, anaerobic/aerobic-out of room at 1314. Permanent Specimen A: Explanted Hardware Left Knee Drains hemovac Complication(s) None Disposition Recovery Room / PACU Description of Procedure After proper prepping and draping left lower extremity incision was reopened including the areas of pinpoint drainage the midportion of the incision there is a palpable defect in the VMO repair of the previous total knee arthroplasty 5 weeks prior which communicated with the subcutaneous tissues of this area was opened Procedures opened the wounds are irrigated poly-was removed the versa jet 1 L of sterile saline solution was used to clean all soft tissues posterior capsule medial lateral gutters socially after exchanging drapes and gloves of the poly- was replaced utilizing 6 L of sterile saline solution with bacitracin was reirrigated again through the knee joint the medial poly-utilizing a MailWriter 8 x 10 poly-was replaced the knee was in to be stable posterior extension mid flexion and flexion closed with #1 Vicryl subcutaneous closed 2-0 Vicryl; skin clips sterile compression dressing placed a Hemovac dressing drain was placed in the wound was irrigated with sterile solution was used to irrigate the knee after thorough irrigation debridement lavage utilizing versa jet as well as pulsatile lavage with sterile saline solution and bacitracin via medial parapatellar incision closed with #1 Vicryl subcutaneous was closed with 2-0 Vicryl skin was closed skin clips a medium bore Hemovacs placed in the wound Samy MORALES was necessary for proper prepping draping retraction and closure of defect subcutaneous and skin was necessary for the case I attest to the content of the Intraoperative Record and any orders documented therein. Any exceptions are noted below.
[2017-06-05] MEDS ORDERED: MAGNESIUM HYDROXIDE SUSP 30 ML UDC PO PRN (14:30)
[2017-06-05] MEDS ORDERED: MoRPHine SULFATE 4 MG/ML 1 ML CARP\\VIAL IV PRN (14:30)
[2017-06-05] MEDS ORDERED: ALBUTEROL HFA 8 GM INHALER INH PRN (14:30)
[2017-06-05] MEDS ORDERED: BISACODYL 10 MG SUPP PR PRN (14:30)
[2017-06-05] MEDS ORDERED: ALUMINUM/MAGNESIUM/SIMETH (MAALOX MAX) 30 ML UDC PO PRN (14:30)
--- NOTE | 2017-06-05 15:13 | DIAGNOSTIC IMAGING REPORT ---
LEFT KNEE 1 OR 2 VIEWS ROUTINE CLINICAL HISTORY: AP/LATERAL IN PACU LEFT KNEE joint replacement COMPARISON: None. DISCUSSION: Total knee replacement in good position. Surgical drains are identified. Expected soft tissue postoperative change IMPRESSION: Anatomic alignment status post total left knee replacement The above report was generated using voice recognition software. It may contain grammatical, syntax or spelling errors. Electronically signed by: Grzegorz Henley M.D. 06/05/2017 3:11 PM Dictated Date/Time: 06/05/2017 3:11 PM
--- NOTE | 2017-06-05 15:53 | Anesthesiology Progress Note ---
Anesthesia Post Op Note Date & Time Jun 05, 2017 at 15:53 Vital Signs Pain Intensity: 0 Vital Signs Past 12 Hours Date Time Temp Pulse Resp B/P (MAP) Pulse Ox O2 Delivery O2 Flow Rate FiO2 06/05/17 15:40 36.8 64 16 119/78 (92) 95 Nasal Cannula 2.0 18/17 15:26 66 19 94 7/18/17 15:26 62 19 /18/17 15:25 36.6 63 16 142/68 96 Nasal Cannula 3 17 15:22 135/67 718/17 15:21 64 19 93 18/17 15:21 60 19 18/17 15:17 136/74 18/17 15:16 62 20 94 18/17 15:16 62 20 /18/17 15:11 62 21 7/18/17 15:11 62 21 129/74 92 18/17 15:07 115/68 18/17 15:06 59 21 97 18/17 15:06 59 21 18/17 15:02 140/90 18/17 15:01 69 16 18/17 15:01 70 16 92 18/17 15:00 61 27 /18/17 14:58 58 16 99 7/18/17 14:58 59 16 /18/17 14:57 61 27 131/77 98 7/18/17 14:57 61 27 /18/17 14:52 60 16 /18/17 14:52 59 16 96 /18/17 14:51 127/77 7/18/17 14:51 127/77 7/18/17 14:50 59 18 7/18/17 14:50 59 18 7/18/17 14:50 60 18 99 7/18/17 14:50 60 18 99 7/18/17 14:47 114/71 7/18/17 14:47 114/71 7/18/17 14:45 60 20 98 7/18/17 14:45 60 20 98 7/18/17 14:45 61 20 7/18/17 14:45 61 20 7/18/17 14:42 127/70 7/18/17 14:42 127/70 7/18/17 14:40 55 19 7/18/17 14:40 54 19 96 06/05/17 14:40 54 19 96 06/05/17 14:40 55 19 06/05/17 14:37 118/77 06/05/17 14:37 118/77 06/05/17 14:35 56 16 95 06/05/17 14:35 56 16 06/05/17 14:35 56 16 95 06/05/17 14:35 56 16 06/05/17 14:31 130/79 06/05/17 14:31 130/79 06/05/17 14:30 59 17 06/05/17 14:30 17 06/05/17 14:30 17 06/05/17 14:30 36.5 60 16 130/79 96 Nasal Cannula 3 06/05/17 14:30 59 17 06/05/17 08:09 94 Room Air 06/05/17 08:04 Room Air 06/05/17 07:38 37.1 65 17 121/74 (90) 94 Room Air Notes Mental Status: alert / awake / arousable, participated in evaluation Pt Amnestic to Procedure: Yes Nausea / Vomiting: adequately controlled Pain: adequately controlled Airway Patency, RR, SpO2: stable & adequate BP & HR: stable & adequate Hydration State: stable & adequate Neuraxial Anesthesia: was administered, sensory block is resolving Anesthetic Complications: no major complications apparent
[2017-06-05] MEDS: D5W AND 1/2NSS + 20MEQ KCL 1,000 ML IV SCH (17:53)
[2017-06-05] MEDS: PIPERACILL/TAZOBAC IV 4.5 GM in DEXTROSE 5% 100ML IV SCH ×2 (17:54→23:53)
[2017-06-05] MEDS: FERROUS GLUCONATE 324 MG TAB PO SCH (17:54)
[2017-06-05] MEDS: KETOROLAC TROMETHAMINE 30 MG/ML VIAL IV. SCH ×2 (17:55→23:53)
[2017-06-05] MEDS: CARVEDILOL 3.125 MG TAB PO SCH (20:48)
[2017-06-05] MEDS: DOCUSATE SODIUM 100 MG CAP PO SCH (20:48)
[2017-06-05] MEDS: TEMAZEPAM 15 MG CAP PO SCH (20:48)
[2017-06-05] MEDS: VITAMIN B COMPLEX TAB PO SCH (20:48)
[2017-06-05] MEDS: MONTELUKAST SOD 10 MG TAB PO SCH (20:48)
[2017-06-05] MEDS: ASPIRIN 81 MG ECTAB PO SCH (20:48)
[2017-06-05] MEDS: ACETAMINOPHEN 500 MG TAB PO SCH (20:49)
[2017-06-05] MEDS: MoRPHine SULFATE CR 15 MG TAB (MS CONTIN) PO SCH (20:49)
[2017-06-06] VITALS (8 sets, daily range): BP systolic 115–150; BP diastolic 67–89; PULSE 60–75; TEMP 36.4–37; O2SAT 95–98
[2017-06-06] MEDS: OXYCODONE HCL IR 5 MG TAB (IMMEDIATE RELEASE) PO PRN ×5 (03:51→22:10)
[2017-06-06] MEDS: D5W AND 1/2NSS + 20MEQ KCL 1,000 ML IV SCH ×2 (05:35→12:16)
[2017-06-06] MEDS: KETOROLAC TROMETHAMINE 30 MG/ML VIAL IV. SCH ×2 (05:35→12:18)
[2017-06-06] MEDS: ACETAMINOPHEN 500 MG TAB PO SCH ×3 (05:36→21:06)
[2017-06-06 07:24] LABS: HEMATOCRIT 34.6 % (42-52); MEAN CELL VOLUME 88.5 fL (80-100); MEAN CORPUSCULAR HEMOGLOBIN 28.4 pg (25-34); MEAN CORPUSCULAR HGB CONC 32.1 g/dl (32-36); MEAN PLATELET VOLUME 8.9 fL (7.4-10.4); PLATELET COUNT 354 K/uL (130-400); RED BLOOD COUNT 3.91 M/uL (4.7-6.1); WHITE BLOOD COUNT 14.76 K/uL (4.8-10.8)
[2017-06-06] MEDS: PIPERACILL/TAZOBAC IV 4.5 GM in DEXTROSE 5% 100ML IV SCH ×2 (07:38→17:07)
[2017-06-06 08:00] LABS: BUN/CREATININE RATIO 19.9 (10-20); CALCIUM 8.9 mg/dl (8.5-10.1); CREATININE 0.8 mg/dl (0.60-1.40); POTASSIUM 4.1 mmol/L (3.5-5.1)
--- NOTE | 2017-06-06 08:05 | Anesthesiology Progress Note ---
Anesthesia Post Op Note Date & Time Jun 06, 2017 at 08:04 Vital Signs Pain Intensity: 8.0 Vital Signs Past 12 Hours Date Time Temp Pulse Resp B/P (MAP) Pulse Ox O2 Delivery O2 Flow Rate FiO2 06/06/17 07:55 97 Room Air 06/06/17 07:54 37.0 64 17 150/89 (109) 97 Room Air 06/06/17 03:13 36.4 70 18 131/67 (88) 97 Room Air 06/06/17 00:11 Room Air 06/05/17 23:03 36.9 89 18 135/69 (91) 98 Room Air Notes Mental Status: alert / awake / arousable, participated in evaluation Pt Amnestic to Procedure: Yes Nausea / Vomiting: adequately controlled Pain: adequately controlled Airway Patency, RR, SpO2: stable & adequate BP & HR: stable & adequate Hydration State: stable & adequate Anesthetic Complications: no major complications apparent
[2017-06-06] MEDS: FERROUS GLUCONATE 324 MG TAB PO SCH ×3 (09:04→17:06)
[2017-06-06] MEDS: CARVEDILOL 3.125 MG TAB PO SCH ×2 (09:06→21:06)
[2017-06-06] MEDS: MULTIVITAMIN TAB PO SCH (09:06)
[2017-06-06] MEDS: ASPIRIN 81 MG ECTAB PO SCH ×2 (09:06→21:05)
[2017-06-06] MEDS: VITAMIN B COMPLEX TAB PO SCH ×2 (09:07→21:07)
[2017-06-06] MEDS: PANTOprazole SOD 40 MG TAB PO SCH (09:07)
[2017-06-06] MEDS: LISINOPRIL 2.5 MG TAB PO SCH (09:08)
[2017-06-06] MEDS: AMLODIPINE BESYLATE 5 MG TAB PO SCH (09:08)
[2017-06-06] MEDS: DOCUSATE SODIUM 100 MG CAP PO SCH ×2 (09:10→21:05)
[2017-06-06] MEDS: MoRPHine SULFATE CR 15 MG TAB (MS CONTIN) PO SCH ×2 (09:10→21:06)
[2017-06-06] MEDS ORDERED: VANCOMYCIN CONSULT ACTIVE PRN (11:45)
--- NOTE | 2017-06-06 11:50 | Pharmacy Progress Note ---
Pharmacy Abx Initial Consult Date of Service Jun 06, 2017. Pharmacy Dosing Scope Date of Consult: 06/06/17 Consultation requested by: Dr. Mckeon Pharmacy is consulted to initiate vancomycin IV dosing therapy, order appropriate labs and adjust drug dose/frequency. Pharmacy is already consulted on Zosyn therapy. Subjective The patient is a 66 year old male admitted on Jun 04, 2017 at 12:49. Objective Height (Feet): 5 Height (Inches): 10.00 Weight (Kilograms): 120.500 (BMI = 38) Vital Signs (Past 12Hrs) Vital Signs Past 12 Hours Date Time Temp Pulse Resp B/P (MAP) Pulse Ox O2 Delivery O2 Flow Rate FiO2 06/06/17 11:24 36.5 60 16 130/84 (99) 98 Room Air 06/06/17 09:05 75 133/72 (92) 06/06/17 08:30 Room Air 06/06/17 07:55 97 Room Air 06/06/17 07:54 37.0 64 17 150/89 (109) 97 Room Air 06/06/17 03:13 36.4 70 18 131/67 (88) 97 Room Air 06/06/17 00:11 Room Air Lab Results (24Hrs) Laboratory Tests (24 Hours) Test 06/06/17 06:56 White Blood Count 14.76 K/uL (4.8-10.8) H Micro Results Date/Time Source Procedure Growth Status 06/05/17 11:15 Blood Blood Culture Pending Received 06/05/17 11:08 Blood Blood Culture Pending Received 06/05/17 13:14 Joint Fluid/Space (Synovial) Knee Left Gram Stain - Final Resulted 06/05/17 13:14 Bacterial Culture - Preliminary Staphylococcus Aureus Resulted Risk Factors for Resistance * Hospitalization for 48 hours or more within the past 90 days - s/p TKR on Assessment & Plan Assessment 66 year old male admitted for infection of prosthesis s/p TKR in April. Patient is on day #2 of Zosyn therapy. He did receive a preop dose of vancomycin yesterday but no further vancomycin doses. L knee culture growing S. aureus w/ sensitivities to follow, WBC count increased. I spoke with ID this AM to have vancomycin added to regimen. Plan Vancomycin IV * Est PK parameters: Vd ~0.6 L/kg (due to BMI > 35), [place] ~ 0.087, t1/2 8 hrs * Loading dose: 2800 mg (23 mg/kg) - okay to give load as level from dose yesterday expected to be almost zero * Maintenance dose: 1750 mg IV (14 mg/kg) every 10 hours * Goal trough level for bone/joint injection : 15 to 20 mcg/mL * Trough level ordered for 06/07/17 prior to the 3rd dose (4th overall dose if counting the preop dose) Note: will not be at steady state but need to assess early with risk for accumulation * A less than traditional dose and/or extended dosing interval has/have been selected due to likelihood of drug accumulation in obese patient Piperacillin/tazobactam * Continue 4.5 g IV extended infusion every 8 hours for CrCl greater than 20 mL/ min * Aggressive dosing selected due to critically ill status/BMI 35 or more/ history of cystic fibrosis. Pharmacy will continue to follow and will adjust dose/frequency as necessary. Thank you.
[2017-06-06] MEDS ORDERED: VANCOMYCIN INJ 2,800 MG in SODIUM CHLORIDE 0.9% 500ML 500 ML IV ONE (12:00)
--- NOTE | 2017-06-06 14:40 | Orthopedic Progress Note ---
Orthopedic Progress Note Date of Service Jun 06, 2017. Subjective Post OP Day: 1 (s/p I&D and poly exhange Left TKA) Reports: feeling well, pain controlled w PO medications, Denies: complaints, chest pain, SOB, nausea / vomiting, light headedness, calf pain Objective calves soft nontender, N/V intact, capillary refill less than 2 sec., dressing C /D/I, A&O x3, toes mobile, hemovac drainage (100cc/8 hours) Date Time Temp Pulse Resp B/P (MAP) Pulse Ox O2 Delivery O2 Flow Rate FiO2 06/06/17 11:24 36.5 60 16 130/84 (99) 98 Room Air 06/06/17 09:05 75 133/72 (92) 06/06/17 08:30 Room Air 06/06/17 07:55 97 Room Air 06/06/17 07:54 37.0 64 17 150/89 (109) 97 Room Air 06/06/17 03:13 36.4 70 18 131/67 (88) 97 Room Air 06/06/17 00:11 Room Air 06/05/17 23:03 36.9 89 18 135/69 (91) 98 Room Air 06/05/17 19:07 36.8 65 18 137/81 (99) 97 Room Air 06/05/17 16:44 65 16 129/78 (95) 97 Room Air 06/05/17 16:14 64 16 117/73 (88) 95 Nasal Cannula 2.0 06/05/17 16:00 Nasal Cannula 06/05/17 16:00 Nasal Cannula 2.0 06/05/17 15:40 36.8 64 16 119/78 (92) 95 Nasal Cannula 2.0 06/05/17 15:26 66 19 94 06/05/17 15:26 62 19 06/05/17 15:25 36.6 63 16 142/68 96 Nasal Cannula 3 06/05/17 15:22 135/67 06/05/17 15:21 64 19 93 06/05/17 15:21 60 19 06/05/17 15:17 136/74 06/05/17 15:16 62 20 94 06/05/17 15:16 62 20 06/05/17 15:11 62 21 06/05/17 15:11 62 21 129/74 92 17 15:07 115/68 06/05/17 15:06 59 21 97 18/17 15:06 59 21 06/05/17 15:02 140/90 06/05/17 15:01 69 16 17 15:01 70 16 92 18 15:00 61 27 06/05/17 14:58 58 16 99 18/17 14:58 59 16 06/05/17 14:57 61 27 131/77 98 06/05/17 14:57 61 27 06/05/ 14:52 60 16 06/05/17 14:52 59 16 96 06/05/ 14:51 127/77 06/05/17 14:51 127/77 06/05/17 14:50 59 18 06/05/17 14:50 59 18 06/05/ 14:50 60 18 99 06/05/17 14:50 60 18 99 06/05/ 14:47 114/71 06/05/17 14:47 114/71 06/05/17 14:45 60 20 98 06/05/17 14:45 60 20 98 06/05/ 14:45 61 20 06/05/ 14:45 61 20 06/05/ 14:42 127/70 06/05/17 14:42 127/70 06/05/17 14:40 55 19 06/05/ 14:40 54 19 96 06/05/ 14:40 54 19 96 06/05/ 14:40 55 19 Laboratory Results 24 Hours: Test 06/06/17 06:56 Hematocrit 34.6 % Hemoglobin 11.1 g/dL Assessment & Plan Assessment: POD #1 s/p Left Knee I&D and poly exchange -intra-op cultures showing many WBCs, prelim culture S. Aureus, sensitivity to follow -hemovac, prevena wound vac -ID on board, awaiting sensitivities, Currently on IV Vanco (1) Infection of prosthesis Discharge Planning Discharge Planning: uncertain DVT Prophylaxis: TEDs, SCDs, ASA
--- NOTE | 2017-06-06 15:12 | Progress Note ---
Subjective Date of Service: Jun 06, 2017. Subjective pt s/p washout and poly exchange. tolerated well. afebrile. wbc slighlty increased today. esr elevated. placed emperically on zoysn vanco. tolerating well. blood cultures pending, OR culture with S. aureus, final pending. no overnight events. Objective Vital Signs Date Time Temp Pulse Resp B/P (MAP) Pulse Ox O2 Delivery O2 Flow Rate FiO2 06/06/17 11:24 36.5 60 16 130/84 (99) 98 Room Air 06/06/17 09:05 75 133/72 (92) 06/06/17 08:30 Room Air 06/06/17 07:55 97 Room Air 06/06/17 07:54 37.0 64 17 150/89 (109) 97 Room Air 06/06/17 03:13 36.4 70 18 131/67 (88) 97 Room Air 06/06/17 00:11 Room Air 06/05/17 23:03 36.9 89 18 135/69 (91) 98 Room Air 06/05/17 19:07 36.8 65 18 137/81 (99) 97 Room Air 06/05/17 16:44 65 16 129/78 (95) 97 Room Air 06/05/17 16:14 64 16 117/73 (88) 95 Nasal Cannula 2.0 06/05/17 16:00 Nasal Cannula 06/05/17 16:00 Nasal Cannula 2.0 06/05/17 15:40 36.8 64 16 119/78 (92) 95 Nasal Cannula 2.0 06/05/17 15:26 66 19 94 06/05/17 15:26 62 19 06/05/17 15:25 36.6 63 16 142/68 96 Nasal Cannula 3 06/05/17 15:22 135/67 06/05/17 15:21 64 19 93 06/05/17 15:21 60 19 06/05/17 15:17 136/74 06/05/17 15:16 62 20 94 06/05/17 15:16 62 20 06/05/17 15:11 62 21 06/05/17 15:11 62 21 129/74 92 Laboratory Results Item Value Date Time Gram Stain - Final Resulted 06/05/17 1314 Joint Fluid/Space (Synovial) Knee Left Last 24 Hours Test 06/06/17 06:56 White Blood Count 14.76 K/uL Red Blood Count 3.91 M/uL Hemoglobin 11.1 g/dL Hematocrit 34.6 % Mean Corpuscular Volume 88.5 fL Mean Corpuscular Hemoglobin 28.4 pg Mean Corpuscular Hemoglobin Concent 32.1 g/dl RDW Standard Deviation 42.8 fL RDW Coefficient of Variation 13.2 % Platelet Count 354 K/uL Mean Platelet Volume 8.9 fL Sodium Level 137 mmol/L Potassium Level 4.1 mmol/L Chloride Level 106 mmol/L Carbon Dioxide Level 25 mmol/L Anion Gap 6.0 mmol/L Blood Urea Nitrogen 16 mg/dl Creatinine 0.80 mg/dl Est Creatinine Clear Calc Drug Dose 121.4 ml/min Estimated GFR () 109.4 Estimated GFR (Non- 94.4 BUN/Creatinine Ratio 19.9 Random Glucose 116 mg/dl Calcium Level 8.9 mg/dl Assessment and Plan (1) Infection of prosthesis Assessment & Plan: continue vanco, stop zosyn. await final culture, follow blood cultures. will likely need picc and IV abx for min 6 weeks. Final abx will depend on final culture results.
[2017-06-06] MEDS: MONTELUKAST SOD 10 MG TAB PO SCH (21:07)
[2017-06-06] MEDS: TEMAZEPAM 15 MG CAP PO SCH (21:11)
[2017-06-06] MEDS: VANCOMYCIN INJ 1,750 MG in SODIUM CHLORIDE 0.9% 500ML 500 ML IV SCH (21:29)
[2017-06-07] MEDS: PIPERACILL/TAZOBAC IV 4.5 GM in DEXTROSE 5% 100ML IV SCH ×2 (00:37→08:06)
[2017-06-07] MEDS: OXYCODONE HCL IR 5 MG TAB (IMMEDIATE RELEASE) PO PRN ×6 (02:06→22:12)
[2017-06-07] MEDS: ACETAMINOPHEN 500 MG TAB PO SCH ×3 (05:48→22:12)
[2017-06-07] MEDS ORDERED: VANCOMYCIN TROUGH ONE (07:30)
[2017-06-07 07:45] VITALS: BP 136/88; PULSE 60; TEMP 36.5; O2SAT 97
[2017-06-07] MEDS: VANCOMYCIN INJ 1,750 MG in SODIUM CHLORIDE 0.9% 500ML 500 ML IV SCH ×2 (08:06→17:11)
[2017-06-07] MEDS: FERROUS GLUCONATE 324 MG TAB PO SCH ×3 (08:35→17:11)
[2017-06-07] MEDS: ASPIRIN 81 MG ECTAB PO SCH ×2 (08:36→20:51)
[2017-06-07] MEDS: AMLODIPINE BESYLATE 5 MG TAB PO SCH (08:36)
[2017-06-07] MEDS: MULTIVITAMIN TAB PO SCH (08:37)
[2017-06-07] MEDS: LISINOPRIL 2.5 MG TAB PO SCH (08:37)
[2017-06-07] MEDS: DOCUSATE SODIUM 100 MG CAP PO SCH ×2 (08:38→20:51)
[2017-06-07] MEDS: PANTOprazole SOD 40 MG TAB PO SCH (08:38)
[2017-06-07] MEDS: VITAMIN B COMPLEX TAB PO SCH ×2 (08:38→20:51)
[2017-06-07] MEDS: CARVEDILOL 3.125 MG TAB PO SCH ×2 (08:39→20:51)
--- NOTE | 2017-06-07 08:39 | Pharmacy Progress Note ---
Pharmacy Abx Dose Progress Nt Date of Service Jun 07, 2017. Pharmacy Dosing Scope The patient is currently receiving the following antimicrobial agents per Pharmacy consult: Vancomycin and Zosyn Objective Height (Feet): 5 Height (Inches): 10.00 Weight (Kilograms): 120.500 (BMI = 38) Vital Signs (Past 12Hrs) Vital Signs Past 12 Hours Date Time Temp Pulse Resp B/P (MAP) Pulse Ox O2 Delivery O2 Flow Rate FiO2 06/07/17 07:45 36.5 60 16 136/88 (104) 97 Room Air 06/07/17 00:30 Room Air 06/06/17 23:11 36.8 61 18 128/79 (95) 97 Room Air 06/06/17 21:04 68 136/85 (102) Micro Results Date/Time Source Procedure Growth Status 06/05/17 11:15 Blood Blood Culture - Preliminary NO GROWTH TO DATE. Resulted 06/05/17 11:08 Blood Blood Culture - Preliminary NO GROWTH TO DATE. Resulted 06/05/17 13:14 Joint Fluid/Space (Synovial) Knee Left Gram Stain - Final Resulted 06/05/17 13:14 Bacterial Culture - Preliminary Staphylococcus Aureus Resulted Risk Factors for Resistance Hospitalization for 48 hours or more within the past 90 days - s/p TKR on 04/25/17 Assessment & Plan Assessment 66 year old male receiving vancomycin and Zosyn for infection of prosthesis s/ p TKR Day # 3 of antimicrobial therapy - ID note from yesterday indicates that Zosyn can be d/c'd; however, this is still active Awaiting sensitivities of L knee joint culture Plan Vancomycin IV * Trough level of 13.9 mcg/mL is near therapeutic, although not at steady state , so expect to reach therapeutic level in next 1-2 doses * Continue dose of 1750 mg IV every 10 hours * Goal trough level for prosthetic joint infection : 15 to 20 mcg/mL * Will order repeat trough level in a few doses if patient to remain on vancomycin - will wait for sensitivities to come back today Piperacillin/tazobactam * Continue 4.5 g IV extended infusion every 8 hours for CrCl greater than 20 mL/ min Pharmacy will continue to follow and will adjust dose/frequency as necessary. Thank you.
[2017-06-07] MEDS: MoRPHine SULFATE CR 15 MG TAB (MS CONTIN) PO SCH ×2 (08:48→20:51)
[2017-06-07 10:04] VITALS: O2SAT 97
[2017-06-07 14:54] VITALS: BP 114/65; PULSE 62; TEMP 36.4; O2SAT 96
--- NOTE | 2017-06-07 16:21 | Orthopedic Progress Note ---
Orthopedic Progress Note Date of Service Jun 07, 2017. Subjective Post OP Day: 2 Reports: feeling well, Denies: complaints Objective calves soft nontender, N/V intact, dressing C/D/I, A&O x3, toes mobile Date Time Temp Pulse Resp B/P (MAP) Pulse Ox O2 Delivery O2 Flow Rate FiO2 06/07/17 15:10 Room Air 06/07/17 14:54 36.4 62 18 114/65 (81) 96 Room Air 06/07/17 10:04 97 Room Air 06/07/17 07:45 36.5 60 16 136/88 (104) 97 Room Air 06/07/17 07:30 Room Air 06/07/17 00:30 Room Air 06/06/17 23:11 36.8 61 18 128/79 (95) 97 Room Air 06/06/17 21:04 68 136/85 (102) 06/06/17 16:21 36.8 68 18 115/70 (85) 95 Room Air Assessment & Plan Assessment: POD #2 s/p Left Knee I&D and poly exchange -intra-op cultures positive for Staph Aureus; Will need Picc line -hemovac, prevena wound vac -ID on board, awaiting sensitivities, Currently on IV Vanco Inhouse Planning Pain Management: Morphine, PO Tylenol, Oxy IR DVT Prophylaxis: TEDs, SCDs, ASA Discharge Planning Discharge Planning: home with home health, uncertain Pain Management: Morphine (MS Contin), Oxy IR DVT Prophylaxis: TEDs, ASA Therapy: Physical Therapy
[2017-06-07] MEDS: LORAZEPAM INJ 0.5 MG in SYRINGE 0.25 ML IV PRN (16:28)
[2017-06-07] MEDS ORDERED: NURSING VERBAL MED ORDER ONE ×2 (19:30)
[2017-06-07] MEDS ORDERED: KETOROLAC TROMETHAMINE 15 MG/ML VIAL IV. ONE (19:30)
[2017-06-07 20:50] VITALS: PULSE 80
[2017-06-07] MEDS: MONTELUKAST SOD 10 MG TAB PO SCH (20:51)
[2017-06-07 23:19] VITALS: BP 123/68; PULSE 67; TEMP 37.4; O2SAT 95
[2017-06-08] MEDS: OXYCODONE HCL IR 5 MG TAB (IMMEDIATE RELEASE) PO PRN ×4 (00:06→11:29)
[2017-06-08] MEDS: LORAZEPAM INJ 0.5 MG in SYRINGE 0.25 ML IV PRN ×2 (00:38→09:51)
[2017-06-08] MEDS: VANCOMYCIN INJ 1,750 MG in SODIUM CHLORIDE 0.9% 500ML 500 ML IV SCH (04:33)
[2017-06-08] MEDS: ACETAMINOPHEN 500 MG TAB PO SCH ×2 (05:40→13:19)
[2017-06-08 07:10] VITALS: BP 116/67; PULSE 69; TEMP 37.2; O2SAT 91
--- NOTE | 2017-06-08 08:35 | Orthopedic Progress Note ---
Orthopedic Progress Note Date of Service Jun 08, 2017. Subjective Post OP Day: 3 Reports: feeling well, pain controlled w PO medications, Denies: complaints, chest pain, SOB, nausea / vomiting, light headedness, calf pain Objective calves soft nontender, N/V intact, capillary refill less than 2 sec., dressing C /D/I (prevena intact), A&O x3, toes mobile Date Time Temp Pulse Resp B/P (MAP) Pulse Ox O2 Delivery O2 Flow Rate FiO2 06/08/17 07:10 37.2 69 18 116/67 (83) 91 Room Air 06/08/17 07:10 Room Air 06/08/17 00:04 Room Air 06/07/17 23:19 37.4 67 16 123/68 (86) 95 Room Air 06/07/17 20:50 80 06/07/17 15:10 Room Air 06/07/17 14:54 36.4 62 18 114/65 (81) 96 Room Air 06/07/17 10:04 97 Room Air Assessment & Plan Assessment: POD #3 s/p Left Knee I&D and poly exchange -intra-op cultures positive for Staph Aureus; Will need Picc line -hemovac, prevena wound vac -ID on board, awaiting sensitivities, Currently on IV Vanco, will get PICC consent today and have placed today, await final ID recommendations and possible d/c today Inhouse Planning Pain Management: Morphine, PO Tylenol, Oxy IR DVT Prophylaxis: TEDs, SCDs, ASA Discharge Planning Discharge Planning: home with home health, uncertain Pain Management: Morphine (MS Contin), Oxy IR DVT Prophylaxis: TEDs, ASA Therapy: Physical Therapy
[2017-06-08] MEDS: MoRPHine SULFATE CR 15 MG TAB (MS CONTIN) PO SCH (08:43)
[2017-06-08] MEDS: FERROUS GLUCONATE 324 MG TAB PO SCH ×2 (08:44→12:23)
[2017-06-08] MEDS: PANTOprazole SOD 40 MG TAB PO SCH (08:44)
[2017-06-08] MEDS: VITAMIN B COMPLEX TAB PO SCH (08:44)
[2017-06-08] MEDS: DOCUSATE SODIUM 100 MG CAP PO SCH (08:44)
[2017-06-08] MEDS: ASPIRIN 81 MG ECTAB PO SCH (08:45)
[2017-06-08] MEDS: MULTIVITAMIN TAB PO SCH (08:45)
[2017-06-08] MEDS: AMLODIPINE BESYLATE 5 MG TAB PO SCH (08:46)
[2017-06-08] MEDS: CARVEDILOL 3.125 MG TAB PO SCH (08:46)
[2017-06-08] MEDS: LISINOPRIL 2.5 MG TAB PO SCH (08:47)
--- NOTE | 2017-06-08 10:32 | Progress Note ---
Subjective Date of Service: Jun 08, 2017. Subjective Pt evaluation today including: conversation w/ patient, physical exam, chart review, lab review pt seen in follow up, no complaints. asking to go home. on vanco, tolerating well. no f/c. pain controlled. vac in place, to be d/c with vac. blood culutres negative. OR culture with MSSA. for picc today. all remaining ros reviewed and are negative. Objective Vital Signs Date Time Temp Pulse Resp B/P (MAP) Pulse Ox O2 Delivery O2 Flow Rate FiO2 06/08/17 07:10 37.2 69 18 116/67 (83) 91 Room Air 06/08/17 07:10 Room Air 06/08/17 00:04 Room Air 06/07/17 23:19 37.4 67 16 123/68 (86) 95 Room Air 06/07/17 20:50 80 06/07/17 15:10 Room Air 06/07/17 14:54 36.4 62 18 114/65 (81) 96 Room Air Physical Exam General Appearance: WD/WN, no apparent distress Eyes: normal inspection, EOMI Neck: supple Respiratory/Chest: lungs clear, normal breath sounds, no respiratory distress Cardiovascular: regular rate, rhythm, no edema, no murmur Abdomen: non tender, soft Extremities: no pedal edema Neurologic/Psychiatric: alert, oriented x 3 Skin: normal color Comments: wound vac in place, no surrounding erythema, warmth, tenderness Laboratory Results Item Value Date Time Gram Stain - Final Resulted 06/05/17 1314 Joint Fluid/Space (Synovial) Knee Left Blood Culture - Preliminary Resulted 06/05/17 1115 Blood NO GROWTH TO DATE. Blood Culture - Preliminary Resulted 06/05/17 1108 Blood NO GROWTH TO DATE. Gram Stain - Final Resulted 06/05/17 1314 Joint Fluid/Space (Synovial) Knee Left Assessment and Plan (1) Infection of prosthesis Assessment & Plan: will change to ctx 2g daily, will need weekly labs while on abx. tentative stop date 07/17, will need follow up post d/c. ok for d/c when stable and outpt abx in place.
[2017-06-08] MEDS ORDERED: RCPAV2 IV (11:52)
[2017-06-08] MEDS ORDERED: MRPSR15 PO (11:52)
[2017-06-08] MEDS ORDERED: RXC5 PO (11:52)
[2017-06-08] MEDS ORDERED: CLB/200 PO (11:52)
--- NOTE | 2017-06-08 11:58 | Discharge Instructions ---
Discharge Instructions Date of Service Jun 08, 2017. Admission Reason for Admission: Infected Left Total Knee Discharge Discharge Diagnosis / Problem: Infected Left TKA Discharge Goals Goal(s): Decrease discomfort, Improve function Activity Recommendations Activity Limitations: per Instructions/Follow-up section Weightbearing Status: Left weightbearing (as tolerated) . Instructions / Follow-Up Instructions / Follow-Up You will be having lab work drawn weekly by Home Health Services per Dr. Mckeon's request. The results will be sent to her. She is managing your antibiotics. ACTIVITY RECOMMENDATIONS: SELF CARE INSTRUCTIONS AFTER TOTAL KNEE REPLACEMENT A. You may need to continue a physical therapy program after discharge from the hospital. There are several options available to you. Your doctor will assist you in selecting the best one for you. 1. An out-patient facility 2 to 3 times a week for therapy or home therapy. 2. Continue working on all exercises taught to you in the hospital. Your goals should be to increase bending of your knee to 90 degrees and beyond and to fully straighten your knee. B. You may progress at your own pace from walking with a walker or crutches to a cane; then to no assistive devices. C. Make walking a part of your daily routine. Be up as much as comfortable with rest periods throughout the day. Rest with leg elevation is very important. Use the ice wrap frequently for the first 3-4 weeks. D. There are no restrictions on activities. You may ride in a car, shop, participate in qualifications examiner and all social activities. E. Wear the long elastic stockings (MANNY hose) 20 hours a day for 2 weeks after surgery. They can be removed several times a day for laundering and for a bath. F. You may shower, no tub baths until cleared by your doctor. SPECIAL CARE INSTRUCTIONS: VERY IMPORTANT TO READ AND REVIEW A. There are a few signs you need to watch for after you are home. Call [facility] if you notice any of the followin. Increased severe knee pain. Some pain is expected especially when you exercise. 2. Increased swelling in your leg or knee; pain or swelling of the calf muscle in either lower leg. 3. Any fluid drainage from the incision. 4. Shortness of breath or chest pain. B. Please call [facility] at if you have any concerns or questions about your operation or recovery. The doctor or his nurse will return your call promptly. C. You must take antibiotics before dental work, bladder, bowel or other surgery. Your doctor will provide you with a permanent care to carry describing this precaution. IMPORTANT: * REMEMBER TO TAKE ASPIRIN, 81 MG, TWICE DAILY FOR 4 WEEKS UNLESS OTHERWISE DIRECTED. THIS IS YOUR BLOOD THINNER. * HIGH RISK PATIENTS MAY BE PRESCRIBED A STRONGER BLOOD THINNER. THIS WILL BE PROVIDED AT DISCHARGE. * CALL IF INCREASED PAIN, REDNESS, DRAINAGE OR FEVER GREATER THAT 101. * WEAR MANNY HOSE 20 HOURS PER DAY FOR 2 WEEKS. * Prevena- This is a large suction dressing covering your incision. This will help pull any excess drainage from the wound and allow your incision to heal properly. You may shower with this if you can keep the unit outside of the shower. If any bleeding or leakage is noted please call your doctor's office. This will remain on your incision for 7 days and then should be removed. This can be done yourself or by the home nursing staff if applicable. The entire unit is disposable once removed. Once removed, keep incision clean and dry. If redness or drainage is noted, please call your surgeon. . FOLLOW UP VISIT: If appointment is not already scheduled: Please call [facility] to make a follow-up appointment for 2 weeks after your surgery at . Follow up with Dr Mckeon in 7-10 days. Call for an appointment. [phone] Current Hospital Diet Patient's current hospital diet: Regular Diet Discharge Diet Recommended Diet: Regular Diet Procedures Procedures Performed: Left Knee Incision and Drainage, Poly Exchange [employer] Pending Studies Studies pending at discharge: no Medical Emergencies . Who to Call and When: Medical Emergencies: If at any time you feel your situation is an emergency, please call 911 immediately. . Non-Emergent Contact Non-Emergency issues call your: Surgeon Call Non-Emergent contact if: temperature is above 101.5, your pain is not controlled, your pain is worsening, wound has increased drainage, wound has increased redness . "Provider Documentation" section prepared by Samy Diaz. . VTE Core Measure Inpt VTE Proph given/why not?: Other Anticoagulation, T.E.D. Stockings, SCD's [place] Drug Monitoring Program Search Results: patient reviewed within database, no issues identified
[2017-06-08] MEDS ORDERED: VANCOMYCIN TROUGH ONE (13:30)
[2017-06-08 13:42] VITALS: BP 116/67; PULSE 69; TEMP 37.2; O2SAT 91
[2017-06-08] MEDS ORDERED: CEFTRIAXONE SOD INJ 2,000 MG in DEXTROSE 5% 50ML 50 ML IV SCH (14:00)
--- NOTE | 2017-06-12 16:48 | DISCHARGE SUMMARY ---
DISCHARGE DIAGNOSIS: Infected left total knee arthroplasty. SECONDARY DIAGNOSES: Hypercholesterolemia, chronic obstructive pulmonary disease, obesity, hypertension. CONSULTS: Dr. Kim Mckeon. COMPLICATIONS: None. PROCEDURES: Irrigation and debridement left knee with polyethylene and bearing change by Dr. Stearns on 06/05/2017. BRIEF HISTORY: As dictated in the history and physical. HOSPITAL SUMMARY: The patient was admitted on the above noted date and had the above noted surgery performed which he tolerated well. He was taken to the operating room and had the above noted procedure performed which on 06/05/2017 which he tolerated well. The patient was started on IV antibiotics postoperatively and Dr. Mckeon had been consulted for infectious disease consult. By his first postoperative day he was feeling well and pain was controlled. He had no complaints. Calves were soft, nontender. Neurovascular was intact. Dressing was clean, dry and intact. Toes were mobile. Vital signs were stable. He was afebrile. Intraoperative cultures were showing staph aureus with sensitivity to follow. Hemoglobin was 11.1 and he was started on physical therapy protocol and continued on DVT prophylaxis, pain management and management as per Dr. Mckeon from infectious disease. He was continued on his vancomycin and his Zosyn was discontinued by Dr. Mckeon. By his second postoperative day he was feeling well. Calves were soft, nontender. Neurovascular was intact. Dressings were clean, dry and intact. Toes were mobile. Vital signs were stable. He was afebrile. Cultures were positive for staph aureus. PICC line was ordered and eventually placed. His sensitivities came back showing methicillin sensitive staph aureus and his vancomycin was discontinued and he was started on IV Rocephin per Dr. Mckeon. A 2 gram dose was given to the patient and PICC line was functioning well. Case management had arranged for home health IV antibiotics and he was otherwise remaining stable and progressing with his PT and it was felt that he could be discharged to home on 06/08/2017. For further review please see chart. Lab and x-ray data as per chart. DISCHARGE INSTRUCTIONS: The patient was discharged to home in satisfactory condition on 06/08/2017. DIET: Regular. ACTIVITY: Weight bearing as tolerated left lower extremity. Follow TK instruction sheets and special care instructions as noted. The patient would have lab work drawn by home health services per Dr. Mckeon's request and sent to her. The patient is to follow up with Dr. Stearns in 2 weeks. The patient to call for appointment if one has not been made for you. The patient to follow up with Dr. Mckeon in 7-10 days, call for an appointment. DISCHARGE MEDICATIONS: Ceftriaxone 2 grams IV daily for 40 days. Resume Tylenol Extra Strength 2 tablets p.o. q. 8 hours, albuterol 2 puffs inhaled for shortness of breath, amlodipine 10 mg p.o. q. a.m., aspirin 81 mg p.o. b.i.d., B complex vitamins 2 tabs p.o. b.i.d., carvedilol 3.125 mg p.o. b.i.d., Celebrex 200 mg p.o. b.i.d., Breo Ellipta 1 puff inhaled q.a.m., lisinopril 2.5 mg p.o. q.a.m., Singulair 10 mg tablet 1 tab p.o. daily, morphine sulfate extended release 15 mg p.o. q. 12 hours, oxycodone 5-10 mg p.o. q. 4 hours p.r.n., senna 17.2 mg p.o. at bedtime, temazepam 15 mg p.o. at bedtime, Incruse Ellipta 1 puff inhaled q. a.m. and Lovaza 1 tab p.o. t.i.d.
== END 2017-06-08 15:11 | disposition home health service (06) | DRG 468 ==
LOC: C.MSW 12:49
PROVIDERS: ADMIT Orthopaedic Surgery; ATTEND Orthopaedic Surgery
PROC: 0SPD09Z Removal of Liner from Left Knee Joint, Open Approach (ICD-10-PCS; principal; 2017-06-05 12:30)
PROC: 0MDP0ZZ Extraction of Left Knee Bursa and Ligament, Open Approach (ICD-10-PCS; principal; 2017-06-05 12:30)
PROC: 0SRD0JZ Replacement of Left Knee Joint with Synthetic Substitute, Open Approach (ICD-10-PCS; principal; 2017-06-05 12:30)
PROC: 02HV33Z Insertion of Infusion Device into Superior Vena Cava, Percutaneous Approach (ICD-10-PCS; 2017-06-08)
DX: T84.54XA Infection and inflammatory reaction due to internal left knee prosthesis, initial encounter (principal); E78.5 Hyperlipidemia, unspecified; F17.200 Nicotine dependence, unspecified, uncomplicated; B95.61 Methicillin susceptible Staphylococcus aureus infection as the cause of diseases classified elsewhere; Z98.890 Other specified postprocedural states; E66.9 Obesity, unspecified; Z68.38 Body mass index [BMI] 38.0-38.9, adult; J44.9 Chronic obstructive pulmonary disease, unspecified; I10 Essential (primary) hypertension; Z96.652 Presence of left artificial knee joint; Y92.009 Unspecified place in unspecified non-institutional (private) residence as the place of occurrence of the external cause; Z96.653 Presence of artificial knee joint, bilateral; Y79.2 Prosthetic and other implants, materials and accessory orthopedic devices associated with adverse incidents

== ENCOUNTER 2025-03-30 10:41 | Inpatient (IN) ==
--- NOTE | 2025-03-30 11:16 | Emergency Department Note ---
ED DC CONDITION Conditon at Discharge Condition at Discharge: Fair Impression & Plan Near syncope, Atrial fibrillation with rapid ventricular response ED Provider Note Name: ALEKSANDAR GAO Age: 74 Sex: Male Arrives Via: Walk-In Informant: Patient, friend ED Provider: Favian Cee MD Chief Complaint: Near syncope Impression: As per impressions above Medical Decision Makin-year-old gentleman with an extensive past medical history including CAD, aortic valve replacement, A-fib persistent, COPD, hypertension amongst others. He is on Coumadin. Patient notes an episode last evening when he almost passed out at that time lost bowel bladder control. Has had some chest pain since last night and then again this morning though currently is asymptomatic. On arrival patient was evaluated noted to have heart rates in the 115's. He was given fluids and some Lopressor with improvement in the heart rate. Laboratory workup is relatively reassuring with only mildly elevated troponin. Patient is comfortable without other complaints at this time following the fluids and some Lopressor. Plan is for hospitalization due to near syncopal event and further management and evaluation. Triage/Nursing Notes reviewed by Me Differential:Infection, dehydration, metabolic abnormality, hypo/hyperglycemia, electrolyte disturbance, anemia, hypoxia, cardiac sources, intracerebral event, toxicologic, neurologic, as well as other pathologies. Vital Signs: reviewed and remarkable for tachycardia Interventions: Lopressor 5 mg IV, normal saline bolus Labs:ED labs Reviewed by me and remarkable for mildly elevated troponin Imagin view chest x-ray as per my interpretation no infiltrate nor effusion appreciated. EKG:As per my interpretation. Indication near syncope. A-fib at 96 bpm with PVCs noted and a QTc of 593. Nonspecific intraventricular block suspect L BBB. No overt ischemia however difficult to tell with morphology. No previous for comparison. Cardiac/Tele Monitoring: Cardiac Monitoring: An Order was placed for continuous cardiac monitoring. The monitor shows a rate of 115 with a afib rhythm. Consults:Discussed with Dr Ayon of [facility] who will evaluate and manage further Plan: Disposition:Hospitalization. Condition: Fair History of Present Illness: 74-year-old gentleman arrives for evaluation of near syncope. Patient with an extensive cardiac and pulmonary history. Previous aortic valve replacement x 2 about 5 years ago due to the initial valve failing. He has a history of A-fib and is on Coumadin along with metoprolol. Along with hypertension for which he is on losartan. Patient notes a history of smoking for many decades and has COPD currently uses 3 L nasal cannula. Patient notes that last evening he was standing in the kitchen when he started become very fatigued and weak. He notes he lost bowel and bladder control. At that time he felt quite short of breath and developed chest tightness. He felt like this was his A-fib going fast but did not specifically notice a fast heart rate. This lasted about possibly an hour. He was able to sit on the couch and relax and eventually symptoms mostly resolved. He notes since then he has been feeling very weak and tired. He states this is very similar to last time his A- fib got out of control. He is unsure whether he is constantly in A-fib but notes he had an episode like this 5 or 6 years ago at which time it was noted to be due to his A-fib. He denies any current chest pain. He has some chronic shortness of breath which she feels is now currently at his baseline. His generalized weakness and fatigue has actually been going on about a month but is worse this morning after the episode last night. Denies any syncope. He did not hit his head. He has no headache neck pain neurologic deficits. He has not had any fevers but he does have a constant chronic cough. Denies any back pain urinary symptoms or other concerning signs or symptoms. Past Medical History: COPD, aortic valve replacement, hypertension, CAD, hypertension amongst others Home Medications: Warfarin metoprolol, albuterol, mirtazapine, losartan, aspirin, amongst others Allergies: Dilaudid, fentanyl, hydrocodone. Vitals:Blood Pressure: 137/62, Pulse 115, RR 20, T 36.0C, O2 98% on 3L Physical Exam: GENERAL: Patient is uncomfortable/tired/dehydrated appearing and in mild distress. RESPIRATORY: Mild dyspnea with some expiratory wheezing though not overly tight lung valdovinos appreciated. CARDIOVASCULAR: Tach and irregular. During my examination heart rate 105-115 and A-fib.No murmur appreciated. GASTROINTESTINAL: Abdomen soft, non-tender, no peritonitis. BACK: No midline tenderness, no CVA tenderness EXTREMITIES: Normal motion all extremities, no cyanosis, no edema. NEUROLOGIC: Alert and oriented. No focal neurologic deficits appreciated SKIN: No rash, no jaundice, no diaphoresis. PSYCH: Appropriate GCS: 15 ED Course: Times/Reassessments: Patient in no distress he is comfortable plan for hospitalization and further workup and evaluation. Of note patient is quite certain he needs to have a pacemaker. At this point it is not clear that that is the case but I did note that if his EF had dropped significantly or if we noticed that he was having some form of tacky bradycardia it may be necessary to do so. 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 Social History Smoking Status: Current every day smoker Tobacco Type: Cigarettes Cigarettes Per Day: one pack; Do You Dip or Chew Tobacco: No; Hx Alcohol Use: No Hx Substance Use: No Preferred Language: Lithuanian Communication Ability: Effective Small Arms Repairer Required: No Beliefs That Will Affect Care: None Current Living Situation: Alone Other Information That Helps Us Care for You: No Feels Safe at Home: Yes Safety Concerns: Feels Safe At This Time Assistive Devices: Oxygen - Continuous Allergies Allergies Allergy/AdvReac Type Severity Reaction Status Date / Time hydromorphone AdvReac Mild IRRITABLE Verified 01/19/25 13:35 AND AGITATED fentanyl AdvReac Unknown agitation Verified 01/19/25 13:35 and irritation hydrocodone AdvReac Unknown irritation Verified 01/19/25 13:35 and agitation Home Meds Home Medications Medication Instructions Recorded Confirmed acetaminophen 325 mg tablet 650 mg PO Q4H PRN pain 03/30/21 01/19/25 albuterol sulfate 90 mcg/actuation 2 puff inhalation Q4H PRN 03/30/21 01/19/25 aerosol inhaler shortness of breath or wheezing aspirin 81 mg tablet,delayed 81 mg PO DAILY 03/30/21 01/19/25 release atorvastatin 40 mg tablet 40 mg PO HS 03/30/21 01/19/25 bumetanide 1 mg tablet 2 mg PO BID 03/30/21 01/19/25 fluticasone 100 mcg-salmeterol 50 1 inh inhalation Q12H 03/30/21 01/19/25 mcg/dose blistr powdr for inhalation (Advair Diskus) metoprolol succinate 25 mg 12.5 mg PO QPM 03/30/21 01/19/25 tablet,extended release 24 hr nicotine 10 mg inhalation cartridge 10 mg inhalation Q2H PRN nicotine 03/30/21 01/19/25 cravings potassium chloride 20 mEq 20 meq PO BID 03/30/21 01/19/25 tablet,extended release tiotropium bromide 18 mcg capsule 1 cap inhalation DAILY 03/30/21 01/19/25 with inhalation device (Spiriva with HandiHaler) vitamin B complex 1 cap PO DAILY 03/30/21 01/19/25 budesonide 160 mcg-glycopyr 9 2 inh inhalation BID 03/30/25 mcg-formot 4.8 mcg/actuation HFA inhaler (Breztri Aerosphere) dupilumab 300 mg/2 mL subcutaneous 300 mg subcut DIRECTED 03/30/25 pen injector ([employer]) ergocalciferol (vitamin D2) 1,250 50,000 unit PO WK 03/30/25 mcg (50,000 unit) capsule (Vitamin D2) losartan 25 mg tablet 25 mg PO DAILY 03/30/25 Previous Rx's Medication Instructions Recorded apixaban 5 mg tablet (Eliquis) 5 mg PO Q12H #180 tabs 03/30/25 Results & Data (ED) Vital Signs Vital Signs - 24 hr 03/30/25 10:45 03/30/25 11:28 03/30/25 11:51 Temperature 36.0 C L Temperature Source Temporal Artery Scan Pulse Rate 86 104 H 74 Respiratory Rate 20 Respiratory Effort / Characteristics Spontaneous Labored Respiratory Depth Normal Respiratory Pattern Regular Blood Pressure 137/62 135/82 Blood Pressure Mean 87 Pulse Oximetry 98 Oxygen Delivery Method Nasal Cannula Oxygen Flow Rate 3 Sepsis Recent Fever Within 48 Hours No Sepsis New/Unexplained Change in Mental Status N/A Sepsis Action Taken by Nursing No Action Required Laboratory Data 03/30/25 11:19 03/30/25 11:19 Lab Results 03/30/25 Range/Units 11:19 WBC 9.88 (4.8-10.8) K/ul RBC 4.58 L (4.70-6.10) M/uL Hgb 14.4 (14.0-18.0) g/dl Hct 42.6 (42.0-52.0) % MCV 93.0 (80.0-100.0) fL MCH 31.4 (25.0-34.0) pg MCHC 33.8 (32.0-36.0) g/dL RDW Std Deviation 43.1 (36.4-46.3) fL RDW Coeff of [place] 12.5 (11.5-14.5) % Plt Count 238 (130-400) K/uL MPV 9.7 (9.4-12.4) fL Immature Gran % (Auto) 0.4 % Neut % (Auto) 71.0 % Lymph % (Auto) 20.0 % [place] % (Auto) 6.4 % Eos % (Auto) 1.8 % Baso % (Auto) 0.4 % Neut # (Auto) 7.01 H (1.40-6.50) K/uL Lymph # (Auto) 1.98 (1.20-3.40) K/uL [place] # (Auto) 0.63 H (0.11-0.59) K/uL Eos # (Auto) 0.18 (0.00-0.50) K/uL Baso # (Auto) 0.04 (0.00-0.20) K/uL Immature Gran # (Auto) 0.04 (0.01-0.20) K/uL PT 15.8 H (9.0-12.0) Seconds INR 1.5 H (0.9-1.1) APTT 33 H (21-31) Seconds PTT Ratio 1.2 Sodium 140 (136-145) mmol/L Potassium 3.5 (3.5-5.1) mmol/L Chloride 106 (98-107) mmol/L Carbon Dioxide 28 (21-32) mmol/L Anion Gap 6 (3-11) BUN 5 L (6-23) mg/dl Creatinine 0.69 (0.6-1.4) mg/dl Est Cr Clr Drug Dosing 114.5 ml/min eGFR 98.33 BUN/Creatinine Ratio 7.2 L (10-20) Glucose 115 H (70-99(Fasting)) mg/dl Calcium 9.5 (8.6-10.3) mg/dl Magnesium 2.1 (1.7-2.4) mg/dl Total Bilirubin 0.7 (0.2-1.0) mg/dl Direct Bilirubin 0.2 (0-0.2) mg/dl AST 23 (13-39) U/L ALT 22 (7-52) U/L Alkaline Phosphatase 76 (34-104) U/L Troponin I High Sens 31.6 H (0-20) pg/ml Total Protein 7.1 (6.0-8.3) gm/dl Albumin 4.5 (3.4-5.0) gm/dl Lipase 198 H (11-82) U/L TSH 1.705 (0.300-4.500) uIu/ml SARS-CoV-2 (PCR) NEGATIVE (Negative) Influenza Type A (PCR) Negative (Neg) Influenza Type B (PCR) Negative (Neg) RSV (RT-PCR) Negative (Neg) Administered Medications Discontinued Medications Sodium Chloride (Nss) 500 mls @ 999 mls/hr IV .Q31M ONE Stop: 03/30/25 11:41 Last Infusion: 03/30/25 12:31 Dose: Infused Documented By: Admin: 03/30/25 11:28 Dose: 999 mls/hr Documented By: BUSTER Metoprolol Tartrate (Metoprolol Tartrate 1 Mg/Ml Vial) 5 mg IV NOW STA Stop: 03/30/25 11:12 Last Admin: 03/30/25 11:28 Dose: 5 mg Documented By: BUSTER Nicotine (Nicotine 21 Mg/24 Hr Tdsy) 1 patch TD NOW STA Stop: 03/30/25 12:51 Last Admin: 03/30/25 13:01 Dose: 1 patch Documented By: BUSTER Imaging Data Radiologist's Impression: Chest X-Ray 03/30/25 11:11 XR chest 1V portable CLINICAL HISTORY: weakness COMPARISON STUDY: 08/04/2016 FINDINGS: There is interval cardiac valve repair. There is interval moderate cardiomegaly without pulmonary vascular congestion. No effusion, consolidation, or pneumothorax. IMPRESSION: No acute findings. ACT 112: Negative or not required by law. Electronically signed by: Oscar Flores M.D. 03/30/2025 11:34 AM Discharge Plan Visit Data Chief Complaint: Cardiac Assessment Stated Complaint: AFIB, BAD EPISODE LAST NIGHT ED Provider: Favian Cee Discharge Problem: Near syncope, Atrial fibrillation with rapid ventricular response Patient Disposition: Admitted As Inpatient Condition: Fair Discharge Instructions Interventions: ED Discharge Assessment Last Done: 03/30/25 14:10
[2025-03-30] MEDS: SODIUM CHLORIDE 0.9% 500 ML IV ONE (11:28)
[2025-03-30] MEDS: METOPROLOL TARTRATE 1 MG/ML VIAL IV STA (11:28)
--- NOTE | 2025-03-30 11:35 | XRay Report ---
XR chest 1V portable CLINICAL HISTORY: weakness COMPARISON STUDY: 08/04/2016 FINDINGS: There is interval cardiac valve repair. There is interval moderate cardiomegaly without pul monary vascular congestion. No effusion, consolidation, or pneumothorax. IMPRESSION: No acute findings. ACT 112: Negative or not required by law. Electronically signed by: Oscar Flores M.D. 03/30/2025 11:34 AM
[2025-03-30 11:37] LABS: Basophils # (auto) 0.04 K/uL (0.00-0.20); Basophils % (auto) 0.4 %; Eosinophils # (auto) 0.18 K/uL (0.00-0.50); Eosinophils % (auto) 1.8 %; Hematocrit (blood only) 42.6 % (42.0-52.0); Hemoglobin 14.4 g/dl (14.0-18.0); Immature Granulocytes # (auto) 0.04 K/uL (0.01-0.20); Immature Granulocytes % (auto) 0.4 %; Lymphocytes # (auto) 1.98 K/uL (1.20-3.40); Mean Corpuscular Hemoglobin 31.4 pg (25.0-34.0); Mean Corpuscular Hgb Conc 33.8 g/dL (32.0-36.0); Mean Platelet Volume 9.7 fL (9.4-12.4); Monocytes # (auto) 0.63 K/uL (0.11-0.59); Monocytes % (auto) 6.4 %; Neutrophils # (auto) 7.01 K/uL (1.40-6.50); Platelet Count 238 K/uL (130-400); RDW Coefficient of Variation 12.5 % (11.5-14.5); RDW Standard Deviation 43.1 fL (36.4-46.3); Red Blood Count 4.58 M/uL (4.70-6.10); White Blood Count 9.88 K/ul (4.8-10.8)
[2025-03-30 12:00] LABS: Albumin Level 4.5 gm/dl (3.4-5.0); BUN Creatinine Ratio 7.2 (10-20); Bilirubin Direct 0.2 mg/dl (0-0.2); Bilirubin,Total 0.7 mg/dl (0.2-1.0); Calcium 9.5 mg/dl (8.6-10.3); Creatinine Clr Calc Pharmacy 114.5 ml/min; Magnesium 2.1 mg/dl (1.7-2.4); Potassium 3.5 mmol/L (3.5-5.1); Total Protein 7.1 gm/dl (6.0-8.3)
[2025-03-30 12:07] LABS: INR 1.5 (0.9-1.1); Partial Thromboplastin Ratio 1.2; Partial Thromboplastin Time 33 Seconds (21-31); Prothrombin Time 15.8 Seconds (9.0-12.0)
[2025-03-30 12:09] LABS: Troponin I High Sensitivity 31.6 pg/ml (0-20)
[2025-03-30 12:15] LABS: Thyroid Stimulating Hormone 1.705 uIu/ml (0.300-4.500)
[2025-03-30 12:16] LABS: Influenza A virus by PCR Negative (Neg); Influenza B virus by PCR Negative (Neg); RSV by PCR Negative (Neg); SARS CoV2 RNA(COVID-19) Ceph NEGATIVE (Negative)
[2025-03-30] MEDS ORDERED: NICOTINE POLACRILEX 2 MG GUM MT PRN (12:50)
[2025-03-30] MEDS: NICOTINE 21 MG/24 HR TDSY TD STA (13:01)
[2025-03-30] MEDS ORDERED: ONDANSETRON INJ 2 MG/ML 2 ML VIAL IV PRN (13:09)
[2025-03-30] MEDS ORDERED: POLYETHYLENE (MIRALAX) 17 GM PACK PO PRN (13:09)
[2025-03-30] MEDS ORDERED: ACETAMINOPHEN 325 MG TAB PO PRN (13:09)
--- NOTE | 2025-03-30 13:23 | History & Physical Report ---
Date of Service March 30, 2025 Assessment & Plan (1) Atrial fibrillation, permanent: (2) S/P AVR (aortic valve replacement): (3) Near syncope: (4) COPD (chronic obstructive pulmonary disease): Plan This is a 74-year-old gentleman with past medical history of A-fib, s/p aortic valve replacement, COPD who presented to the emergency department on 03/30/2025 after a near syncopal episode. While in the emergency department he did have a negative chest x-ray. His CBC and CMP were both stable. Troponin was mildly elevated at 31.6 with repeat pending. Lipase was mildly elevated at 198. TSH was WNL. COVID/flu/RSV testing negative. His INR was found to be below baseline at 1.5. #Near-syncope/A fib - will near-syncope episode 1 day prior to admission. EKG with A-fib in the EDs/p Lopressor 5 mg IV Chest x-ray negative CBC/CMP stable, lipase nonspecifically elevated at 198 TSH WNL Troponin 31.6suspect demand ischemia in the setting of A-fib--> repeat pending COVID/flu/RSV testing negative Update echocardiogram; unsure of last echocardiogram to date. Switch from Coumadin to Eliquis 5mg BID per cardiology office notes from 03/30. Cardiology consulted, appreciate recommendations Continue Metoprolol, Losartan, ASA, Bumex, Potassium Monitor on telemetry #COPD On 3L O2 @ baseline --> continue Continue home inhalers. DVT prophylaxis: Eliquis Code: full Case was discussed with Dr. Ayon at time of admission. History of Present Illness Primary Care Provider: Mariam Klein DO This is a 74-year-old gentleman with past medical history of A-fib, s/p aortic valve replacement, COPD who presented to the emergency department on 03/30/2025 after a near syncopal episode. He was seen and examined at bedside this afternoon. He states that for the last 1 to 2 months he has felt "off". He states that he has been experiencing "brain fogginess". He states that he feels he has to get out of the house in order to feel better. He does live alone. He also reports he "wished God would take him because he doesn't want to live like this". He denies any suicidal ideation. He states that yesterday evening he was standing in his kitchen. He states that he then suddenly became very weak and experienced an abrupt onset of chest pain. He denies any radiation of his chest pain. He states that he then felt he was going to lose consciousness but did not. He is able to make it to the couch to sit down. He did have urinary incontinence with this episode. He states that this has happened in the past years ago prior to his aortic valve replacement. He states that he has not routinely followed with a bowl turner in many years because he did not think that he needed to. He is not sure when his last ec hocardiogram was. He does have a history of COPD and is chronically on 3 L of oxygen which is his baseline. He denies any worsening of his shortness of breath. He tells me that his heart rate is spiking to the 180s at home. He denies any lower extremity edema. He denies any nausea, vomiting, changes in bowel habits, or abdominal pain. He denies any urinary urgency, frequency, hematuria. He states that he did not take his medications yesterday evening or this morning because he was not sure if he would require any procedures. While in the emergency department he did have a negative chest x-ray. His CBC and CMP were both stable. Troponin was mildly elevated at 31.6 with repeat pending. Lipase was mildly elevated at 198. TSH was WNL. COVID/flu/RSV testing negative. His INR was found to be below baseline at 1.5. Code discussion to take place with the patient and he does confirm that he is a full code. Allergies Allergy/AdvReac Type Severity Reaction Status Date / Time hydromorphone AdvReac Mild IRRITABLE Verified 01/19/25 13:35 AND AGITATED fentanyl AdvReac Unknown agitation Verified 01/19/25 13:35 and irritation hydrocodone AdvReac Unknown irritation Verified 01/19/25 13:35 and agitation Home Medications Medication Instructions Recorded Confirmed Type acetaminophen 325 mg tablet 650 mg PO Q4H PRN pain 03/30/21 01/19/25 History albuterol sulfate 90 mcg/actuation 2 puff inhalation Q4H PRN 03/30/21 01/19/25 History aerosol inhaler shortness of breath or wheezing aspirin 81 mg tablet,delayed 81 mg PO DAILY 03/30/21 01/19/25 History release atorvastatin 40 mg tablet 40 mg PO HS 03/30/21 01/19/25 History bumetanide 1 mg tablet 2 mg PO BID 03/30/21 01/19/25 History fluticasone 100 mcg-salmeterol 50 1 inh inhalation Q12H 03/30/21 01/19/25 History mcg/dose blistr powdr for inhalation (Advair Diskus) metoprolol succinate 25 mg 12.5 mg PO QPM 03/30/21 01/19/25 History tablet,extended release 24 hr nicotine 10 mg inhalation cartridge 10 mg inhalation Q2H PRN nicotine 03/30/21 01/19/25 History cravings potassium chloride 20 mEq 20 meq PO BID 03/30/21 01/19/25 History tablet,extended release tiotropium bromide 18 mcg capsule 1 cap inhalation DAILY 03/30/21 01/19/25 History with inhalation device (Spiriva with HandiHaler) vitamin B complex 1 cap PO DAILY 03/30/21 01/19/25 History apixaban 5 mg tablet (Eliquis) 5 mg PO Q12H #180 tabs 03/30/25 Rx budesonide 160 mcg-glycopyr 9 2 inh inhalation BID 03/30/25 History mcg-formot 4.8 mcg/actuation HFA inhaler (Breztri Aerosphere) dupilumab 300 mg/2 mL subcutaneous 300 mg subcut DIRECTED 03/30/25 History pen injector (Dupixent) ergocalciferol (vitamin D2) 1,250 50,000 unit PO WK 03/30/25 History mcg (50,000 unit) capsule (Vitamin D2) losartan 25 mg tablet 25 mg PO DAILY 03/30/25 History Past Med/Surg History Problem List (Updated 03/30/25 @ 18:17 by Favian Cee MD) Atrial fibrillation with rapid ventricular response (Acute) Cardiomyopathy Near syncope (Acute) Atrial fibrillation, permanent Aortic valvular disorder S/P AVR (aortic valve replacement) COPD (chronic obstructive pulmonary disease) Hyperlipidemia Hypertension Medical History 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 Social History Smoking Status: Current every day smoker Tobacco Type: Cigarettes Cigarettes Per Day: one pack; Do You Dip or Chew Tobacco: No; Hx Alcohol Use: No Hx Substance Use: No Preferred Language: German Communication Ability: Effective Grinder Set Up Operator Surface Required: No Beliefs That Will Affect Care: None Current Living Situation: Alone Other Information That Helps Us Care for You: No Feels Safe at Home: Yes Safety Concerns: Feels Safe At This Time Assistive Devices: Oxygen - Continuous Physical Exam Physical Exam: General: no acute distress; non-toxic appearing; well-nourished; cooperative HEENT: normocephalic, atraumatic; no scleral icterus; PERRLA w/ EOMs intact; vision and hearing grossly intact Skin: warm, dry without signs of tenting; no cyanosis; no rashes, bruising, lesions, or erythema noted CV: Irregularly irregular; no M/R/G, S1/S2 normal. Lungs: no acute respiratory distress; symmetrical chest wall expansion; Lungs CTA; 3L O2 ABD: Soft, NTP; BS present; no rebound/guarding; no distention MSK: no edema noted in the LEs b/l, nonerythematous Neuro: A&Ox3; normal mood and affect; fluent speech; no focal deficits Results & Data Results & Data Vital Signs (Past 12 Hours) Vital Signs Temp Pulse Resp BP Pulse Ox O2 Del Method O2 Flow Rate 03/30/25 11:51 74 03/30/25 11:28 104 H 135/82 03/30/25 10:45 36.0 C L 86 20 137/62 98 Nasal Cannula 3 Supervising Physician Co-Signing Physician Notes PA Supervision Note: I personally saw and examined the patient. I verified all otero points and agree with CARMEN Herrera with the following exceptions and/or additions: S-Pt here with near syncope, loss of bladder, came on after coughing. He feels this exact same thing happened after a coughing fit which led to his "Afib acting up" and then had urine incontinence a few years ago. He has long standing hip pain and admits to taking oxycodone obtained illicitly to help with his pain. He is askin gfor pain meds. O- Vitals reviewed Gen: [AAOx3, NAD] HEENT: [anicteric sclerae, EOMI] CV: [irreg irreg, normal rate, no mgr nl S1S2] Pulm: [+rhonchi, wheezing, cough] Abd: [+BS soft NT ND no masses or hernias] Ext: [no edema] Skin: [no rashes, warm/dry] Neuro: [full strength throughout] A/P-74 yo male here with near syncope, possibly vasovagal. Monitor on tele, check ECHO Cardiology recommends improvement of CHF regimen--> add Entresto and dc losartan. Add SGLT2-i as outpt Consider uptitrate toprol as well for improved rate control Ok to use prn oxycodone while here-cautioned on using illegally obtained opioids as outpt. Will refer him to Orthopedic Surgery for opinion on chronic right hip pain-message sent to Nurse Navigator PG Care Time/CCT Total # of Minutes Spent Total Time Spent with Patient: Total time spent is greater than 50% in coordination of care (as documented) at patient's floor/unit and/or counseling patient: Coding Level of Care Code 23711 INT INP/OBS CARE 3/75MIN Diagnoses Atrial fibrillation, permanent I48.21 S/P AVR (aortic valve replacement) Z95.2 Near syncope R55 COPD (chronic obstructive pulmonary disease) J44.9
--- NOTE | 2025-03-30 14:17 | XCELERA ---
[id number]
[2025-03-30 17:10] LABS: Appearance Urine Clear (Clear); Bilirubin Urine Negative (Negative); Blood Urine Negative (Negative); Color Urine Yellow; Glucose Urine UA Negative (Negative); Ketones Urine Negative (Negative); Leukocyte Esterase Urine Negative (Negative); Nitrite Urine Negative (Negative); Protein Urine Negative (Negative); Specific Gravity Urine 1.013 (1.000-1.030); Urobilinogen Urine Negative (Negative); pH Urine 6.5 (4.5-7.5)
--- NOTE | 2025-03-30 18:14 | Cardiology Consultation ---
Date of Consultation March 30, 2025 Assessment & Plan (1) Aortic valvular disorder: (2) Atrial fibrillation, permanent: (3) Near syncope: (4) Cardiomyopathy: Plan 1. Bicuspid aortic valve: Status post bioprosthetic aortic valve replacement x 2 most recently in 2020. Normally functioning valve on echocardiography. Also prior ascending aortic replacement. No evidence of significant dilation on recent CT scan. 2. Atrial fibrillation: Presumably permanent. Generally adequate rate control. Associated right bundle branch block and occasional aberrant conduction versus PVCs. He has been maintained on warfarin but is subtherapeutic. Currently transitioned to Eliquis which will be more reliable. He can continue his current dose of metoprolol succinate. 3. Near syncope: Most likely a vagally mediated event. No loss of consciousness. The circumstances surrounding the event are suggestive of high vagal tone. Less likely would be an arrhythmia. Will continue telemetry monitoring. 4. Cardiomyopathy: Has had variable degrees of LV dysfunction described over the years. Prior coronary angiography obtained in 2019 did not reveal obstructive disease. I did suggest the option for repeat evaluation. He certainly has multiple risk factors for coronary disease. In either event he would benefit from more aggressive medical therapy to include did addition of an SGLT2 inhibitor and replacement of losartan with Entresto. History of Present Illness Reason for Consultation: Patient request Requesting Physician: Diana Attending Physician: Cailin Ayon MD History of Present Illness The patient is a 74-year-old gentleman with a history of a bicuspid aortic valve and associated stenosis. He underwent operative valve replacement in 2019 but within 1 year developed a significant and symptomatic perivalvular leak. He was subsequently seen at the [facility] and in 2020 underwent a replacement of his original valve with a bioprosthetic aortic valve in addition to an ascending root replacement. His postoperative course was complicated by the development of atrial fibrillation. He was started on systemic anticoagulation at that time with warfarin. His follow-up in the cardiology clinic has been sporadic. He was evaluated recently for possible left atrial appendage occlusion. He was actually admitted to [facility] in November 2024 with symptoms of dyspnea. His evaluation at that time included an echocardiogram suggesting ejection fraction of 30 to 35%. He was also felt to have an exacerbation of COPD and treated with Solu-Medrol. IV Lasix was also administered. Patient thinks his hospitalization was abbreviated and he was discharged home. His overall activity is limited primarily by right hip discomfort. He has been unable to achieve adequate relief even with injections in the hip. He does not appear to be a good operative candidate based on his other comorbidities. There is also some concern about prior opioid abuse. He ambulates with a cane. When he is ambulatory he is also somewhat dyspneic and feels as if his "A-fib acts up". He is generally unaware of palpitations unless he is performing strenuous activity. He does not report dizziness or lightheadedness. He does not have shortness of breath at rest. He does use supplemental oxygen at all times. He has not noticed any lower extremity edema lately. Overall activity level has not changed. Primary reason for admission involved an acute event which occurred the day prior. The patient states that he was in his kitchen when he coughed forcefully. This produced some dizziness and caused him to urinate himself. He felt very unsteady on his feet but did not lose consciousness. Based on this event he contacted a friend who suggested he go to the emergency room. His main concern currently involves "brain fog. He is very frustrated at the fact that for several months he has been unable to concentrate or think clearly. This appears to clear up overnight but in the early part of the day his sy mptoms returned. Allergies Allergy/AdvReac Type Severity Reaction Status Date / Time hydromorphone AdvReac Mild IRRITABLE Verified 01/19/25 13:35 AND AGITATED fentanyl AdvReac Unknown agitation Verified 01/19/25 13:35 and irritation hydrocodone AdvReac Unknown irritation Verified 01/19/25 13:35 and agitation Home Medications Medication Instructions Recorded Confirmed Type acetaminophen 325 mg tablet 650 mg PO Q4H PRN pain 03/30/21 01/19/25 History albuterol sulfate 90 mcg/actuation 2 puff inhalation Q4H PRN 03/30/21 01/19/25 History aerosol inhaler shortness of breath or wheezing aspirin 81 mg tablet,delayed 81 mg PO DAILY 03/30/21 01/19/25 History release atorvastatin 40 mg tablet 40 mg PO HS 03/30/21 01/19/25 History bumetanide 1 mg tablet 2 mg PO BID 03/30/21 01/19/25 History fluticasone 100 mcg-salmeterol 50 1 inh inhalation Q12H 03/30/21 01/19/25 History mcg/dose blistr powdr for inhalation (Advair Diskus) metoprolol succinate 25 mg 12.5 mg PO QPM 03/30/21 01/19/25 History tablet,extended release 24 hr nicotine 10 mg inhalation cartridge 10 mg inhalation Q2H PRN nicotine 03/30/21 01/19/25 History cravings potassium chloride 20 mEq 20 meq PO BID 03/30/21 01/19/25 History tablet,extended release tiotropium bromide 18 mcg capsule 1 cap inhalation DAILY 03/30/21 01/19/25 History with inhalation device (Spiriva with HandiHaler) vitamin B complex 1 cap PO DAILY 03/30/21 01/19/25 History apixaban 5 mg tablet (Eliquis) 5 mg PO Q12H #180 tabs 03/30/25 Rx budesonide 160 mcg-glycopyr 9 2 inh inhalation BID 03/30/25 History mcg-formot 4.8 mcg/actuation HFA inhaler (Breztri Aerosphere) dupilumab 300 mg/2 mL subcutaneous 300 mg subcut DIRECTED 03/30/25 History pen injector (Dupixent) ergocalciferol (vitamin D2) 1,250 50,000 unit PO WK 03/30/25 History mcg (50,000 unit) capsule (Vitamin D2) losartan 25 mg tablet 25 mg PO DAILY 03/30/25 History Patient History Medical History 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 Physical Exam Physical Exam: The patient is alert and oriented. Mood and affect appeared normal. He answered all questions appropriately. Using supplemental oxygen HEENT: Pupils are equal and reactive to light and accommodation. Extraocular movements are intact. The sclerae are anicteric. Neuro: Cranial nerves intact Lungs: Clear to auscultation bilaterally. He has good air movement without use of accessory muscles. No rales wheezes or rhonchi. Cardiac: Heart demonstrates an irregular rhythm but normal rate. Normal S1 and S2. No murmurs on examination. Pulses: The patient has palpable radial pulses bilaterally that are equal in intensity Extremities: There was no evidence of hypoperfusion. There is no cyanosis or clubbing. There is no edema. Skin: I did not appreciate any rashes on examination today. Results & Data Vital Signs (Past 12 Hours) Vital Signs Temp Pulse Pulse Resp BP BP Pulse Ox 03/30/25 16:42 70 03/30/25 14:39 03/30/25 14:39 36.4 C L 92 H 18 147/91 H 93 03/30/25 14:10 03/30/25 11:51 74 03/30/25 11:28 104 H 135/82 03/30/25 10:45 36.0 C L 86 20 137/62 98 O2 Del Method O2 Flow Rate 03/30/25 16:42 03/30/25 14:39 Nasal Cannula 3 03/30/25 14:39 Nasal Cannula 3 03/30/25 14:10 Room Air 03/30/25 11:51 03/30/25 11:28 03/30/25 10:45 Nasal Cannula 3 Laboratory Results Abnormal Lab Results 03/30/25 03/30/25 03/30/25 11:19 14:39 Unknown WBC 9.88 RBC 4.58 L Hgb 14.4 Hct 42.6 MCV 93.0 MCH 31.4 MCHC 33.8 RDW Std Deviation 43.1 RDW Coeff of Dillan 12.5 Plt Count 238 MPV 9.7 Immature Gran % (Auto) 0.4 Neut % (Auto) 71.0 Lymph % (Auto) 20.0 [place] % (Auto) 6.4 Eos % (Auto) 1.8 Baso % (Auto) 0.4 Neut # (Auto) 7.01 H Lymph # (Auto) 1.98 [place] # (Auto) 0.63 H Eos # (Auto) 0.18 Baso # (Auto) 0.04 Immature Gran # (Auto) 0.04 PT 15.8 H INR 1.5 H APTT 33 H PTT Ratio 1.2 Sodium 140 Potassium 3.5 Chloride 106 Carbon Dioxide 28 Anion Gap 6 BUN 5 L Creatinine 0.69 Est Cr Clr Drug Dosing 114.5 eGFR 98.33 BUN/Creatinine Ratio 7.2 L Glucose 115 H Calcium 9.5 Magnesium 2.1 Total Bilirubin 0.7 Direct Bilirubin 0.2 AST 23 ALT 22 Alkaline Phosphatase 76 Troponin I High Sens 31.6 H 36.4 H Total Protein 7.1 Albumin 4.5 Lipase 198 H TSH 1.705 Urine Color Yellow Urine Appearance Clear Urine pH 6.5 Ur Specific [place] 1.013 Urine Protein Negative Urine Glucose (UA) Negative Urine Ketones Negative Urine Blood Negative Urine Nitrite Negative Urine Bilirubin Negative Urine Urobilinogen Negative Ur Leukocyte Esterase Negative SARS-CoV-2 (PCR) NEGATIVE Influenza Type A (PCR) Negative Influenza Type B (PCR) Negative RSV (RT-PCR) Negative Diagnostic Findings Echocardiogram 03/30/2025: Technically difficult study. Mildly reduced LV systolic function with ejection fraction of 40 to 45%. Normally functioning bioprosthetic aortic valve. Mild to moderate mitral regurgitation. Mildly dilated left atrium. Mildly dilated left ventricle. Regional wall motion abnormality primarily involving the inferior wall. Echocardiogram 12/01/2024: Moderate to severely reduced LV systolic function with ejection fraction of 30 to 35%. No regional wall motion abnormalities. Severe left atrial dilation. Normally functioning bioprosthetic aortic valve. Echocardiogram 03/02/2022: Low normal LV systolic function with ejection fraction of 50 to 55%. Normal bioprosthetic aortic valve gradient. Chest x-ray obtained at the time of admission did not reveal any acute cardiopulmonary findings. PG Care Time/CCT Total # of Minutes Spent Total Time Spent with Patient: Total time spent is greater than 50% in coordination of care (as documented) at patient's floor/unit and/or counseling patient: Coding Level of Care Code 59039 INT INP/OBS CARE 375MIN Diagnoses Aortic valvular disorder I35.9 Atrial fibrillation, permanent I48.21 Near syncope R55 Cardiomyopathy I42.9
--- NOTE | 2025-03-30 18:36 | Electrocardiogram Report ---
Test Reason : Blood Pressure : */* mmHG Vent. Rate : 96 BPM Atrial Rate : * BPM P-R Int : * ms QRS Dur : 166 ms QT Int : 470 ms P-R-T Axes : * -87 59 degrees QTcB Int : 593 ms Atrial fibrillation with premature ventricular or aberrantly conducted complexes Left axis deviation Right bundle branch block Abnormal ECG When compared with ECG of 04-Aug-2016 12:28, Atrial fibrillation has replaced Sinus rhythm Confirmed by Everett Wing ([id number]) on 03/30/2025 6:35:49 PM Referred By: REFERRED SELF Confirmed By: Everett Wing
[2025-03-30] MEDS ORDERED: ALBUT/IPRATROP 3MG/0.5MG NEB 3 ML VIAL NEB PRN (20:09)
[2025-03-30] MEDS: ALBUT/IPRATROP 3MG/0.5MG NEB 3 ML VIAL NEB STA (20:17)
[2025-03-30 20:24] LABS: Amphetamines+Metham, Urine Neg (Neg); Barbiturates, Urine Neg (Neg); Benzodiazepine, Urine Neg (Neg); Cocaine, Urine Neg (Neg); Fentanyl, Urine Neg (Neg); MDMA (Ecstacy), Urine Neg (Neg); Marijuana, Urine Neg (Neg); Methadone, Urine Neg (Neg); Opiate, Urine Pos (Neg); Phencyclidine, Urine Neg (Neg)
[2025-03-30] MEDS: APIXABAN 5 MG TABLET PO SCH (22:29)
[2025-03-30] MEDS: oxyCODONE HCL IR 5 MG TAB (IMMEDIATE RELEASE) PO PRN (22:31)
[2025-03-30] MEDS: DICLOFENAC SOD 1% GEL 100 GM TUBE EXT SCH (22:32)
[2025-03-30] MEDS: ATORVASTATIN 40 MG TAB PO SCH (22:32)
[2025-03-30] MEDS: ASPIRIN 81 MG ECTAB PO SCH (22:32)
[2025-03-30] MEDS: MIRTAZAPINE TAB 15 MG TAB PO SCH (22:34)
[2025-03-31 04:30] LABS: Basophils # (auto) 0.07 K/uL (0.00-0.20); Basophils % (auto) 0.7 %; Eosinophils # (auto) 0.37 K/uL (0.00-0.50); Eosinophils % (auto) 3.8 %; Hematocrit (blood only) 40.2 % (42.0-52.0); Hemoglobin 13.3 g/dl (14.0-18.0); Immature Granulocytes # (auto) 0.03 K/uL (0.01-0.20); Immature Granulocytes % (auto) 0.3 %; Lymphocytes # (auto) 2.59 K/uL (1.20-3.40); Lymphocytes % (auto) 26.9 %; Mean Corpuscular Hemoglobin 30.6 pg (25.0-34.0); Mean Corpuscular Hgb Conc 33.1 g/dL (32.0-36.0); Mean Corpuscular Volume 92.4 fL (80.0-100.0); Mean Platelet Volume 9.3 fL (9.4-12.4); Monocytes # (auto) 0.71 K/uL (0.11-0.59); Monocytes % (auto) 7.4 %; Neutrophils # (auto) 5.85 K/uL (1.40-6.50); Neutrophils % (auto) 60.9 %; Platelet Count 212 K/uL (130-400); RDW Coefficient of Variation 12.6 % (11.5-14.5); RDW Standard Deviation 42.6 fL (36.4-46.3); Red Blood Count 4.35 M/uL (4.70-6.10); White Blood Count 9.62 K/ul (4.8-10.8)
[2025-03-31 04:45] LABS: BUN Creatinine Ratio 12.3 (10-20); Calcium 9.3 mg/dl (8.6-10.3); Creatinine Clr Calc Pharmacy 121.5 ml/min; Magnesium 2.1 mg/dl (1.7-2.4); Potassium 3.9 mmol/L (3.5-5.1)
[2025-03-31] MEDS: METOPROLOL SUCC 25MG EXT REL TAB PO SCH (08:24)
[2025-03-31] MEDS ORDERED: LOSARTAN POTASSIUM 25 MG TAB PO SCH (09:00)
[2025-03-31] MEDS: NICOTINE 21 MG/24 HR TDSY TD SCH (09:33)
[2025-03-31] MEDS: VALSARTAN/SACUBITRIL 26/24MG TAB PO SCH (09:33)
[2025-03-31] MEDS: hydrOXYzine HCl 25 MG TAB PO PRN (12:56)
[2025-03-31] MEDS: ACETAMINOPHEN 500 MG TAB PO SCH (13:42)
--- NOTE | 2025-03-31 16:44 | Hospitalist Progress Note ---
Date of Service March 31, 2025 Assessment & Plan (1) Atrial fibrillation, permanent: (2) S/P AVR (aortic valve replacement): (3) Near syncope: (4) COPD (chronic obstructive pulmonary disease): Plan This is a 74-year-old gentleman with past medical history of A-fib, s/p aortic valve replacement, COPD who presented to the emergency department on 03/30/2025 after a near syncopal episode. #Near-syncope/permanent A fib/chronic HFrEF- will near-syncope episode 1 day prior to admission. Near syncope could be related to arrhythmia versus vasovagal as it came on with coughing Chest x-ray negative CBC/CMP stable, lipase nonspecifically elevated at 198; TSH WNL Troponin peaked at 36.4 & then downtrended to 27.2 --> suspect demand ischemia secondary to A fib. COVID/flu/RSV testing negative Echo 03/30: EF 40-45%; mild-mod mitral regurgitation. Cardiology consulted, discussed w/ Dr. Wing --> switch from Losartan to Entresto. Continue Metoprolol, Bumex. Add Jardiance Plan for cardiac cath 04/01 for ischemic evaluation given HFrEF, patient NPO after midnight, Eliquis held. PT/OT consulted, appreciate recommendations. #COPD On 3L O2 @ baseline --> continue Continue home inhalers. #Right Hip Pain Patient receiving opioids illegally as outpatient. Urine drug screen + for opioids Scheduled tylenol Oxycodone prn while inpatient refer to orthopedic surgery outpatient. DVT prophylaxis: Eliquis on hold Code: full Discussed w/ cardiology 03/31. Admission and Anticipated Discharge Date Admission Date: March 31, 2025 Supervising Physician Co-Signing Physician Notes PA Supervision Note: I did not personally see or examine the patient today, but I verified all otero points of CARMEN Ortiz's assessment and plan with the following exceptions/additions: None Kadi Benitez was seen and examined this afternoon. He denied chest pain or shortness of breath. He did admit to anxiety and says he feels anxious about his cardiac cath tomorrow. Complains of hip pain and states the oxycodone has been helpful. Physical Exam Physical Exam: General: no acute distress; non-toxic appearing; well-nourished; cooperative HEENT: normocephalic, atraumatic; no scleral icterus; PERRLA w/ EOMs intact; vision and hearing grossly intact Skin: warm, dry without signs of tenting; no cyanosis; no rashes, bruising, lesions, or erythema noted CV: irregularly irregular. Lungs: no acute respiratory distress; symmetrical chest wall expansion; clear breath sounds across all lung valdovinos w/o adventitious sounds; no wheezing MSK: no tics or fasciculations; no edema noted in the LEs b/l, nonerythematous Neuro: A&Ox3; normal mood and affect; fluent speech; no focal deficit Results & Data Results & Data Vital Signs (Past 12 Hours) Vital Signs Temp Pulse Pulse Resp BP BP Pulse Ox 03/31/25 15:23 36.5 C 61 22 124/82 97 03/31/25 15:08 78 03/31/25 11:06 36.6 C 61 18 135/80 98 03/31/25 09:38 03/31/25 07:45 36.7 C 83 20 148/95 H 97 03/31/25 07:04 82 O2 Del Method O2 Flow Rate 03/31/25 15:23 Nasal Cannula 3 03/31/25 15:08 03/31/25 11:06 Nasal Cannula 2 03/31/25 09:38 Nasal Cannula 3 03/31/25 07:45 Nasal Cannula 2 03/31/25 07:04 PG Care Time/CCT Total # of Minutes Spent Total Time Spent with Patient: Total time spent is greater than 50% in coordination of care (as documented) at patient's floor/unit and/or counseling patient: Coding Level of Care Code 98926 SUB INP/OBS CARE 2/35MIN Diagnoses Atrial fibrillation, permanent I48.21 S/P AVR (aortic valve replacement) Z95.2 Near syncope R55 COPD (chronic obstructive pulmonary disease) J44.9
--- NOTE | 2025-03-31 17:32 | Cardiology Progress Note ---
Date of Service March 31, 2025 Assessment & Plan (1) Aortic valvular disorder: (2) Atrial fibrillation, permanent: (3) Near syncope: (4) Cardiomyopathy: Plan 1. Bicuspid aortic valve: Status post bioprosthetic aortic valve replacement x 2 most recently in 2020. Normally functioning valve on echocardiography. Also prior ascending aortic replacement. No evidence of significant dilation on recent CT scan. 2. Atrial fibrillation: Presumably permanent. Generally adequate rate control. Associated right bundle branch block and occasional aberrant conduction versus PVCs. He has been maintained on warfarin but is subtherapeutic. Currently transitioned to Eliquis which will be more reliable. He can continue his current dose of metoprolol succinate. 3. Near syncope: Most likely a vagally mediated event. No loss of consciousness. The circumstances surrounding the event are suggestive of high vagal tone. Less likely would be an arrhythmia. Will continue telemetry monitoring. 4. Cardiomyopathy: Has had variable degrees of LV dysfunction described over the years. Prior coronary angiography obtained in 2019 did not reveal obstructive disease. I did suggest the option for repeat evaluation. He certainly has multiple risk factors for coronary disease. In either event he would benefit from more aggressive medical therapy to include did addition of an SGLT2 inhibitor and replacement of losartan with Entresto. Planning cardiac catheterization for tomorrow. Additional medical recommendations to follow. Admission and Anticipated Discharge Date Admission Date: March 31, 2025 Subjective The patient's main complaint this afternoon was development of his typical "brain fog". He is not reporting symptoms of breathing difficulty. He has been minimally ambulatory due to his orthopedic disease. No chest pain or sense of palpitation. Review of Systems Review of Systems: Per HPI. Physical Exam Physical Exam: The patient is alert and oriented. Mood and affect appeared normal. He answered all questions appropriately. Using supplemental oxygen HEENT: Pupils are equal and reactive to light and accommodation. Extraocular movements are intact. The sclerae are anicteric. Neuro: Cranial nerves intact Lungs: Clear to auscultation bilaterally. He has good air movement without use of accessory muscles. No rales wheezes or rhonchi. Cardiac: Heart demonstrates an irregular rhythm but normal rate. Normal S1 and S2. No murmurs on examination. Pulses: The patient has palpable radial pulses bilaterally that are equal in intensity Extremities: There was no evidence of hypoperfusion. There is no cyanosis or clubbing. There is no edema. Skin: I did not appreciate any rashes on examination today. Results & Data Vital Signs (Past 12 Hours) Vital Signs Temp Pulse Pulse Resp BP BP Pulse Ox 03/31/25 15:23 36.5 C 61 22 124/82 97 03/31/25 15:08 78 03/31/25 11:06 36.6 C 61 18 135/80 98 03/31/25 09:38 03/31/25 07:45 36.7 C 83 20 148/95 H 97 03/31/25 07:04 82 O2 Del Method O2 Flow Rate 03/31/25 15:23 Nasal Cannula 3 03/31/25 15:08 03/31/25 11:06 Nasal Cannula 2 03/31/25 09:38 Nasal Cannula 3 03/31/25 07:45 Nasal Cannula 2 03/31/25 07:04 Laboratory Results Abnormal Lab Results 03/30/25 03/30/25 03/31/25 19:29 22:53 04:12 WBC 9.62 RBC 4.35 L Hgb 13.3 L Hct 40.2 L MCV 92.4 MCH 30.6 MCHC 33.1 RDW Std Deviation 42.6 RDW Coeff of Dillan 12.6 Plt Count 212 MPV 9.3 L Immature Gran % (Auto) 0.3 Neut % (Auto) 60.9 Lymph % (Auto) 26.9 [place] % (Auto) 7.4 Eos % (Auto) 3.8 Baso % (Auto) 0.7 Neut # (Auto) 5.85 Lymph # (Auto) 2.59 [place] # (Auto) 0.71 H Eos # (Auto) 0.37 Baso # (Auto) 0.07 Immature Gran # (Auto) 0.03 Sodium 142 Potassium 3.9 Chloride 110 H Carbon Dioxide 26 Anion Gap 6 BUN 8 Creatinine 0.65 Est Cr Clr Drug Dosing 121.5 eGFR 100.11 BUN/Creatinine Ratio 12.3 Glucose 99 Calcium 9.3 Magnesium 2.1 Troponin I High Sens 30.5 H 27.2 H Urine Opiates Screen Pos H Ur Methadone, Qual Neg Urine Fentanyl Screen Neg Urine Barbiturates Neg Ur Phencyclidine (PCP) Neg U Amphetamin/Meth Scrn Neg MDMA (Ecstasy) Screen Neg U Benzodiazepines Scrn Neg Ur Cocaine Metabolite Neg U Marijuana (THC) Screen Neg PG Care Time/CCT Total # of Minutes Spent Total Time Spent with Patient: Total time spent is greater than 50% in coordination of care (as documented) at patient's floor/unit and/or counseling patient: Coding Level of Care Code 45993 SUB INP/OBS CARE 235MIN Diagnoses Aortic valvular disorder I35.9 Atrial fibrillation, permanent I48.21 Near syncope R55 Cardiomyopathy I42.9
--- NOTE | 2025-04-01 09:44 | Pre Anesthesia Assessment ---
Date of Service April 01, 2025 Pre Sedation Assessment Vital Signs Temp Pulse Pulse Pulse Resp BP BP 04/01/25 07:48 04/01/25 07:45 36.5 C 76 23 116/76 04/01/25 05:43 70 04/01/25 02:52 36.6 C 69 18 141/83 H 03/31/25 22:08 36.7 C 72 18 125/80 03/31/25 21:48 71 03/31/25 19:29 36.7 C 69 18 123/78 03/31/25 15:23 36.5 C 61 22 124/82 03/31/25 15:08 78 03/31/25 11:06 36.6 C 61 18 135/80 Pulse Ox O2 Del Method O2 Flow Rate 04/01/25 07:48 Nasal Cannula 2 04/01/25 07:45 92 Room Air, Nasal Cannula 04/01/25 05:43 04/01/25 02:52 96 Nasal Cannula 2 03/31/25 22:08 99 Nasal Cannula 3 03/31/25 21:48 03/31/25 19:29 98 Nasal Cannula 3 03/31/25 15:23 97 Nasal Cannula 3 03/31/25 15:08 03/31/25 11:06 98 Nasal Cannula 2 Cardiovascular + irregularly irregular Respiratory + respiratory effort normal Pre-Sedation Airway Assessment Smoking Status: Current every day smoker Hx Sleep Apnea: No Hx Difficult Intubation: No Short, Thick Neck: No Thyromental Distance: > or= 3.5 Finger Breadths Oral Cavity: + WNL Mallampati Class: III ASA: ASA3 Procedure Planning Contraindications for Sedation: none Current Medications Reviewed: Yes Notes The planned sedation has been discussed with the patient. Informed Consent was obtained. I have identified the patient, determined the appropriateness of sedation and have assessed the patient immediately prior to the procedure. All medicine(s) and interventions are by my order.
[2025-04-01] MEDS: MIDAZOLAM HCL 1 MG/ML 2ML VIAL ONE (10:41)
[2025-04-01] MEDS: fentaNYL citrate PF 100 MCG/2 ML VIAL ONE (10:41)
[2025-04-01] MEDS: HEPARIN (PORCINE) 1000 UNIT/ML 10 ML (CATH LAB USE ONLY) ONE (10:41)
[2025-04-01] MEDS: NITROGLYCERIN/D5W 100MCG/ML 20ML SYR ONE (10:42)
[2025-04-01] MEDS: IODIXANOL (VISIPAQUE) 320 MG/ML 100ML IV ONE (10:42)
[2025-04-01] MEDS: niCARdipine 2,000 MCG/20 ML SYR ONE (10:42)
--- NOTE | 2025-04-01 10:45 | Cardiac Catheterization ---
[facility] Data: Brick Chimney Supervisor Cardiac Status Clinical evaluation leading to the procedure CAD Presenation: Sx unlikely to be ischemic Diagnostic Physicians Name: Everett Wing MD Closure Device Recommendations: Medical Therapy and/or Counseling Cardiac Cath Procedure Full Procedure Date April 01, 2025 Pre-Procedure Diagnosis Pre-Procedure Diagnosis: Cardiomyopathy AUC Score AUC Score: 7 Post-Procedure Diagnosis Post-Procedure Diagnosis: Normal Coronary Arteries Procedure(s) Performed Procedure(s) Performed: Coronary Angiography Industrial Property Appraiser Everett Wing MD Roll Up Machine Operator(s) none Estimated Blood Loss Estimated Blood Loss: 7cc Medication(s) Medication(s): Fentanyl, Heparin, Lidocaine 1%, Nicardipine, Nitroglycerin and Versed Summary of Findings Procedure performed: Selective coronary angiography Staff gun repair clerk: Everett Wing MD Indication: The patient is a 74-year-old gentleman without a known history of coronary disease who was noted to have reduced LV systolic function Procedure in detail: The patient was informed of the risks benefits and alternatives to the intended procedure, he understood such and wished to proceed. He was taken to the cardiac catheterization suite in a fasting state. Conscious sedation was administered per protocol and the patient was monitored electrocardiographically throughout today's procedure. The left wrist area was prepped and draped in usual sterile fashion (patient reported difficulty engaging the coronaries from the right wrist previously). This area was anesthetized using subcutaneous administration of a lidocaine solution. The left radial artery was then accessed using Seldinger technique, and a arterial sheath was placed at this site over a guidewire. The sheath was used to facilitate passage of the cardiac catheter for coronary angiography and left heart catheterization. Coronary angiogram was then obtained in multiple orthogonal views prior to removal of the catheter. At the conclusion of the procedure the sheath was removed and hemostasis was achieved at the access site using manual pressure. The patient tolerated procedure well, there were no immediate complications. Equipment used: 5 Serbian JL 3.5 and 5 Serbian 3 DRC Findings: Left Main: Left main coronary artery was relatively short but bifurcated normally into the left anterior descending and left circumflex arteries. Left anterior descending colon left anterior sending reduced a medium sized first diagonal branch and several diminutive additional diagonal branches. No obstructive disease in this vessel Left circumflex: Left circumflex was a dominant vessel producing the majority of the posterior descending artery. There were 3 additional OM branches without disease. No obstructive disease in the left circumflex system. Right coronary artery: Right coronary artery was difficult to engage due to its anterior takeoff. Nonselective views were obtained demonstrating a patent artery which tapered at its distal portion with relatively diminutive PL B and PDA branches. Impression: Left dominant coronary system No obstructive coronary disease Hemodynamics Rest Ao:: 98/73 mmHg Final Ao: 113/74 mmHg LV: n/a Recommendations Recommendations: Medical Therapy and/or Counseling Radiation Exposure (mGy) 1786 Contrast (mls) 80 Procedural Complication(s) None Disposition PCU I attest to the content of the Intraoperative Record and any orders documented therein. Any exceptions are noted below. [facility] Card Cath Procedure Codes Cardiac Catheterization Procedure 1: Cardiovascular Cath Procedures: 56423 Coronaries Moderate Sedation Procedure 1: Sedation/Anesthesia: 78852 Mod Sedation by the same physician;Init15 Min Child Age 5 & Up Procedure 2: Sedation/Anesthesia: 11118 Mod Sedation by the same physician; Ea [id number] Minutes PG Care Time/CCT Total # of Minutes Spent Total Time Spent with Patient: Total time spent is greater than 50% in coordination of care (as documented) at patient's floor/unit and/or counseling patient:
--- NOTE | 2025-04-01 10:45 | Post Anesthesia Assessment ---
Date of Service April 01, 2025 Post Sedation Assessment Vital Signs Temp Pulse Pulse Pulse Resp BP BP 04/01/25 09:40 36.6 C 65 18 149/78 H 04/01/25 07:48 04/01/25 07:45 36.5 C 76 23 116/76 04/01/25 05:43 70 04/01/25 02:52 36.6 C 69 18 141/83 H 03/31/25 22:08 36.7 C 72 18 125/80 03/31/25 21:48 71 03/31/25 19:29 36.7 C 69 18 123/78 03/31/25 15:23 36.5 C 61 22 124/82 03/31/25 15:08 78 03/31/25 11:06 36.6 C 61 18 135/80 Pulse Ox O2 Del Method O2 Flow Rate 04/01/25 09:40 95 Nasal Cannula 2 04/01/25 07:48 Nasal Cannula 2 04/01/25 07:45 92 Room Air, Nasal Cannula 04/01/25 05:43 04/01/25 02:52 96 Nasal Cannula 2 03/31/25 22:08 99 Nasal Cannula 3 03/31/25 21:48 03/31/25 19:29 98 Nasal Cannula 3 03/31/25 15:23 97 Nasal Cannula 3 03/31/25 15:08 03/31/25 11:06 98 Nasal Cannula 2 Recovery Score Activity: Moves 4 extremities Respiration: Deep Breath/Cough Circulation: +/-20% PreAnes Value Consciousness: Fully Awake Oxygen Saturation: O2 needed for >90% Discharge Sedation Level of Care: Fast Track Phase II Post Sedation Plan On clinical assessment, the patient appears to have tolerated the sedation without complications. Patient is recovering as anticipated. Patient will continue to be monitored by nursing and may be discharged when sedation discharge criteria are met per below protocol. Upon Completions of procedure up to 15 minutes continue every 5 minute vital signs and the P.A.R. score; then discharge to a Phase I or Fast Track to Phase II per the following guidelines: * Discharge Patient to appropriate Phase II area if PAR is 8 or greater or return to pre- procedure baseline. The post - procedure orders will be as d irected. * If PAR score is less than 8 or not return to pre-procedure baseline then patient will follow Phase I monitoring till PAR is reached for Phase II. The Phase I may be done in procedure room or may call to secure a Phase I area. * If naloxone or flumazenil are used for reversal, hold in Phase I for continued monitoring from when last reversal dose was given for a minimum of 60 minutes or longer pending the nurse and/or physician discretion of patient condition before discharge to Phase II. Please call the Sedation Physician to re-evaluate and complete post-note for discharge to Phase II area. Do NOT discharge from procedure sedation or Phase 1 until post- sedation evaluation note is complete by procedure /sedation MD Sedation Discharge Instructions to be given to the patient at discharge to home.
--- NOTE | 2025-04-01 11:05 | Cardiology Progress Note ---
Date of Service April 01, 2025 Assessment & Plan (1) Aortic valvular disorder: (2) Atrial fibrillation, permanent: (3) Near syncope: (4) Cardiomyopathy: Plan 1. Bicuspid aortic valve: Status post bioprosthetic aortic valve replacement x 2 most recently in 2020. Normally functioning valve on echocardiography. Also prior ascending aortic replacement. No evidence of significant dilation on recent CT scan. 2. Atrial fibrillation: Presumably permanent. Generally adequate rate control. Associated right bundle branch block and occasional aberrant conduction versus PVCs. Now on Eliquis for anticoagulation. He underwent cardiac catheterization today but Eliquis can be resumed tomorrow morning. 3. Near syncope: Most likely a vagally mediated event. 4. Cardiomyopathy: Midrange ejection fraction. His coronary angiography did not demonstrate any obstructive lesions or targets for revascularization. As such, we should intensify his medical therapy. I would add Jardiance 10 mg daily and switch his losartan to Entresto at the lowest dose. He can follow-up in our clinic or closer to home for additional titration of medications and monitoring of LV function. Admission and Anticipated Discharge Date Admission Date: March 31, 2025 Subjective This morning the patient continues to have difficulty with ambulation due to significant hip pain. Again some brain fog at times. Breathing appears to be stable. No chest pain. Review of Systems Review of Systems: Per HPI. Physical Exam Physical Exam: The patient is alert and oriented. Mood and affect appeared normal. He answered all questions appropriately. Using supplemental oxygen HEENT: Pupils are equal and reactive to light and accommodation. Extraocular movements are intact. The sclerae are anicteric. Neuro: Cranial nerves intact Lungs: Clear to auscultation bilaterally. He has good air movement without use of accessory muscles. No rales wheezes or rhonchi. Cardiac: Heart demonstrates an irregular rhythm but normal rate. Normal S1 and S2. No murmurs on examination. Pulses: The patient has palpable radial pulses bilaterally that are equal in intensity Extremities: There was no evidence of hypoperfusion. There is no cyanosis or clubbing. There is no edema. Skin: I did not appreciate any rashes on examination today. Results & Data Vital Signs (Past 12 Hours) Vital Signs Temp Pulse Pulse Pulse Resp BP BP 04/01/25 10:57 84 18 134/85 04/01/25 09:40 36.6 C 65 18 149/78 H 04/01/25 07:48 04/01/25 07:45 36.5 C 76 23 116/76 04/01/25 05:43 70 04/01/25 02:52 36.6 C 69 18 141/83 H Pulse Ox O2 Del Method O2 Flow Rate 04/01/25 10:57 96 Nasal Cannula 2 04/01/25 09:40 95 Nasal Cannula 2 04/01/25 07:48 Nasal Cannula 2 04/01/25 07:45 92 Room Air, Nasal Cannula 04/01/25 05:43 04/01/25 02:52 96 Nasal Cannula 2 Diagnostic Findings Cardiac catheterization demonstrated normal coronary arteries without signifi cant obstructive disease. PG Care Time/CCT Total # of Minutes Spent Total Time Spent with Patient: Total time spent is greater than 50% in coordination of care (as documented) at patient's floor/unit and/or counseling patient: Coding Level of Care Code 97224 SUB INP/OBS CARE 2/35MIN Diagnoses Aortic valvular disorder I35.9 Atrial fibrillation, permanent I48.21 Near syncope R55 Cardiomyopathy I42.9
[2025-04-01] MEDS: OPTIRAY 350 ONE (11:46)
[2025-04-01 13:19] VITALS: RESP 18
[2025-04-01 15:18] VITALS: BP 100/66; PULSE 73; TEMP 97.3; O2SAT 96
--- NOTE | 2025-04-01 15:46 | Discharge Summary ---
Discharge Summary Date of Service April 01, 2025 Principal Dx & Hospital Course #1 = Principal Diagnosis (1) Atrial fibrillation, permanent: (2) S/P AVR (aortic valve replacement): (3) Near syncope: (4) COPD (chronic obstructive pulmonary disease): Plan This is a 74-year-old gentleman with past medical history of A-fib, s/p aortic valve replacement, COPD who presented to the emergency department on 03/30/2025 after a near syncopal episode. #Near-syncope/permanent A fib/chronic HFrEF- will near-syncope episode 1 day prior to admission. Near syncope could be related to arrhythmia versus vasovagal as it came on with coughing Chest x-ray negative CBC/CMP stable, lipase nonspecifically elevated at 198; TSH WNL Troponin peaked at 36.4 & then downtrended to 27.2 --> suspect demand ischemia secondary to A fib. COVID/flu/RSV testing negative Echo 03/30: EF 40-45%; mild-mod mitral regurgitation. Cardiology consulted, discussed w/ Dr. Wing --> switch from Losartan to Entresto. Continue Metoprolol, Bumex. Add Jardiance. Start Eliquis 04/02 in AM. s/p Cardiac cath 04/01 --> no obstructive lesions/targets for revascularization. OT - recommending home w/ HH & rolling walker. Script signed for RW. #COPD On 3L O2 @ baseline --> continue Continue home inhalers. #Right Hip Pain Patient receiving opioids illegally as outpatient. Urine drug screen + for opioids Scheduled Tylenol Oxycodone prn while inpatient --> did give a 3 day supply outpatient upon discharge. Follow up w/ PCP for further pain medication if needed. Advised against obtai nela illegally. refer to orthopedic surgery outpatient. Discussed w/ Cardiology & OT 04/01 Discharged w/ HH Admission HPI Per Admitting Provider This is a 74-year-old gentleman with past medical history of A-fib, s/p aortic valve replacement, COPD who presented to the emergency department on 03/30/2025 after a near syncopal episode. He was seen and examined at bedside this afternoon. He states that for the last 1 to 2 months he has felt "off". He states that he has been experiencing "brain fogginess". He states that he feels he has to get out of the house in order to feel better. He does live alone. He also reports he "wished God would take him because he doesn't want to live like this". He denies any suicidal ideation. He states that yesterday evening he was standing in his kitchen. He states that he then suddenly became very weak and experienced an abrupt onset of chest pain. He denies any radiation of his chest pain. He states that he then felt he was going to lose consciousness but did not. He is able to make it to the couch to sit down. He did have urinary incontinence with this episode. He states that this has happened in the past years ago prior to his aortic valve replacement. He states that he has not routinely followed with a band saw marker in many years because he did not think that he needed to. He is not sure when his last echocardiogram was. He does have a history of COPD and is chronically on 3 L of oxygen which is his baseline. He denies any worsening of his shortness of breath. He tells me that his heart rate is spiking to the 180s at home. He denies any lower extremity edema. He denies any nausea, vomiting, changes in bowel habits, or abdominal pain. He denies any urinary urgency, frequency, hematuria. He states that he did not take his medications yesterday evening or this morning because he was not sure if he would require any procedures. While in the emergency department he did have a negative chest x-ray. His CBC and CMP were both stable. Troponin was mildly elevated at 31.6 with repeat pending. Lipase was mildly elevated at 198. TSH was WNL. COVID/flu/RSV testing negative. His INR was found to be below baseline at 1.5. Code discussion to take place with the patient and he does confirm that he is a full code. Discharge Exam General: no acute distress; non-toxic appearing; well-nourished; cooperative HEENT: normocephalic, atraumatic; no scleral icterus; PERRLA w/ EOMs intact; vision and hearing grossly intact Skin: warm, dry without signs of tenting; no cyanosis; no rashes, bruising, lesions, or erythema noted Lungs: no acute respiratory distress; symmetrical chest wall expansion MSK: no edema noted in the LEs b/l, nonerythematous Neuro: A&Ox3; normal mood and affect; fluent speech Discharge Plan Discharge Items Patient Disposition: Home - Home Health Services Reason For Visit: SYNCOPE Discharge Diagnosis: Syncope, Atrial Fibrillation, Cardiomyopathy Condition on Discharge: Fair Activity: Resume your previous activity Non-emergency contact: Primary Care Provider and Cell Operator Call non-emergency contact if: you have any medication questions and your symptoms worsen Follow-up/Referrals: Ignacio Dumont MD [Physician] - Mariam Klein DO [Outside Practitioners] - Diet: Heart Healthy Addtl Attending Provider Instructions: Mr. Mcpherson, You were recently hospitalized for a near-syncopal episode. While here, you had a cardiac catheterization by Dr. Wing. Please see recommendations below regarding your discharge. Please stop taking Losartan. Please take Entresto twice daily and Jardiance once daily - these are ready for you at the pharmacy. Please start taking Eliquis twice daily tomorrow, 04/02 in the AM. The remainder of your outpatient medications may be resumed. If you develop any chest pain, shortness of breath, syncope please report back to the ER for further care. Sincerely, Emmie Ortiz PA-C Pending Studies at Discharge: No Stand-Alone Forms: My Erly, Smoking Cessation Medications and DC Order Prescriptions: New Entresto 24-26 mg Tablet 1 tab PO BID Qty: 60 0RF Jardiance 10 mg tablet 10 mg PO QAM Qty: 30 0RF oxycodone 5 mg Tablet 5 mg PO Q4H PRN (Reason: pain) Qty: 15 0RF Continued Eliquis 5 mg tablet 5 mg PO Q12H Qty: 180 3RF acetaminophen 325 mg tablet 650 mg PO Q4H PRN (Reason: pain) albuterol sulfate 90 mcg/actuation HFA aerosol inhaler 2 puff inhalation Q4H PRN (Reason: shortness of breath or wheezing) aspirin 81 mg tablet,delayed release (DR/EC) 81 mg PO DAILY atorvastatin 40 mg tablet 40 mg PO HS vitamin B complex Capsule 1 cap PO DAILY bumetanide 1 mg tablet 2 mg PO BID fluticasone propion-salmeterol [Advair Diskus] 100-50 mcg/dose blister with device 1 inh inhalation Q12H metoprolol succinate 25 mg tablet extended release 24 hr 12.5 mg PO QPM nicotine 10 mg cartridge 10 mg inhalation Q2H PRN (Reason: nicotine cravings) potassium chloride 20 mEq tablet extended release 20 meq PO BID Spiriva with HandiHaler 18 mcg capsule, w/inhalation device 1 cap inhalation DAILY Rx Instructions: puncture 1 cap using device; one dose = 2 inhalations ergocalciferol (vitamin D2) [Vitamin D2] 1,250 mcg (50,000 unit) capsule 50,000 unit PO WK Dupixent Pen 300 mg/2 mL pen injector 300 mg subcut DIRECTED Breztri Aerosphere 160-9-4.8 mcg/actuation HFA aerosol inhaler 2 inh INHALATION BID Discontinued losartan 25 mg tablet 25 mg PO DAILY Discharge Orders: Discharge Order (Routine); Ordered 04/01/25 Ordered By: Emmie Ortiz Admission Data Admit Date/Time: 03/31/25 12:39 Attending Provider: Cailin Ayon Admit Provider: Cailin Ayon Primary Care Provider: Roni Lawrence Other Providers: Cailin Ayon; Jeremy Hines; Leonel Alonzo; Ignacio Dumont; Jt Carbone; Eran Mccormack; Tushar Oneil Jr; Robert Jorge; Mariam Dempsey; Siri Johnson; Everett Norotn; Everett Wing; Kim Guerrero; Roni Guardado; Aurora Munoz; Roin Pantoja; Vadim Reed; Reinaldo Grajeda Other Interventions: Discharge Summary Assessment (RN) Last Done: 04/01/25 15:49 Hospital Stay Data Consultations 03/30/25 12:33 ED Decision to Admit Stat 03/30/25 13:09 Consult Cardiology Routine Procedures Performed Operation Date: 04/01/25 09:30 Actual Procedures p Cineradiography w/Routine Exam - Everett Wing MD p Cath, Coronaries ONLY (no LV) - Everett Wing MD Diagnostic Imagining Performed 04/01/25 06:40 CL Cath Imgs for PACS use only Routine Pending Results Patient Have Any Pending Studies at Discharge: No Discharge Instructions Given to Patient (Per Discharging Provider) Mr. Mcpherson, You were recently hospitalized for a near-syncopal episode. While here, you had a cardiac catheterization by Dr. Wing. Please see recommendations below regarding your discharge. Please stop taking Losartan. Please take Entresto twice daily and Jardiance once daily - these are ready for you at the pharmacy. Please start taking Eliquis twice daily tomorrow, 04/02 in the AM. The remainder of your outpatient medications may be resumed. If you develop any chest pain, shortness of breath, syncope please report back to the ER for further care. Sincerely, Emmie Ortiz PA-C Supervising Physician Co-Signing Physician Notes PA Supervision Note: I did not personally see or examine the patient today, but I verified all otero points of CARMEN Ortiz's assessment and plan with the following exceptions/additions: None Total Time Total Time Spent Total Time Spent (In Minutes): 50 Total Time Includes: Examination of the Patient, Discharge Planning, Medication Reconciliation and Communication With Other Providers Coding Level of Care Code 67341 INP/OBS DISCH >30 MIN Diagnoses Atrial fibrillation, permanent I48.21 S/P AVR (aortic valve replacement) Z95.2 Near syncope R55 COPD (chronic obstructive pulmonary disease) J44.9
[2025-04-02 22:01] LABS: Codeine Urine NEGATIVE ng/mL (<50); Hydrocodone Urine NEGATIVE ng/mL (<50); Hydromor Urine 5240 ng/mL (<50); Morphine Urine NEGATIVE ng/mL (<50); Norhydrocodone Conf Ur NEGATIVE ng/mL (<50); Noroxycodone Urine NEGATIVE ng/mL (<50); Oxycodone Urine NEGATIVE ng/mL (<50); Oxymorph Urine NEGATIVE ng/mL (<50)
== END 2025-04-01 17:03 | disposition home health service (06) | DRG 287 ==
LOC: 2N 10:41 → ED 10:41 → 2N 14:10 → 2E 04-01 11:30
PROC: CLB.CCO (2025-04-01 09:30)